=== PATIENT | male | born 1950 | race African-American/Black ===

== ENCOUNTER 2016-06-05 19:56 | Inpatient (IN) | payer MEDICAID ==
--- NOTE | 2016-06-05 19:57 | EDPHY ---
H & P HPI/ROS: CHIEF COMPLAINT: Found unresponsive. HISTORY OF PRESENT ILLNESS: This is a 63-year-old male presenting via EMS after being being found unresponsive on the floor at his home. He was last seen normal by friends 2 days ago. He did not respond to phone calls, so his friends went to his house this evening and found him on the floor in the kitchen unresponsive. On EMS arrival, he was breathing spontaneously, opened his eyes to voice and was very cold. EMS established a 16 gauge IV in the left AC and placed on a non-rebreather. EMS surveyed the home and reports finding blood in the toilet along with blood on tissues by his side. He was seen in the ED 1 year prior for a stroke alert but declined admission at that time. Further history unobtainable due to clinical condition. REVIEW OF SYSTEMS: Unobtainable. Past Medical/Surgical History: Hypertension, stroke. Social History: Lives alone. Physical Exam: General Appearance: Opens eyes to voice, mumbles when I ask his name Eyes: Pupils equal and round, 3mm ENT, Mouth: Mucous membranes dry, decreased gag reflex Neck: Normal inspection Respiratory: Lungs are clear to auscultation anteriorly, good air exchange Cardiovascular: Regular rate and rhythm Gastrointestinal: Abdomen is soft, nondistended Neurological: Opens eyes to voice, mumbles, not moving right lower extremity to painful stimuli, moving other extremities to painful stimuli Skin: Very cold, mottled extremities Extremities: pedal edema Constitutional: Initial Vital Signs Temperature (C) 26 C L 06/05/16 20:10 Heart Rate 45 L 06/05/16 20:10 Respiratory Rate 16 06/05/16 20:10 Blood Pressure 75/0 L 06/05/16 20:10 O2 Delivery Mode Non-Rebreather Mask O2 (L/minute) 15 Allergies/Adverse Reactions: No Known Allergies Allergy (Verified 06/05/16 23:10) Home Medications: Medication Instructions Recorded Antifungal For Face 06/10/14 Verapamil [Verapamil HCl] 06/10/14 Medical Decision Making - Diagnostics Imaging: Chest x-ray reviewed by me reveals cardiomegaly, no infiltrate. Procedures: Procedure: Rapid sequence intubation. Indication for the procedure was respiratory failure, AMS. The patient was preoxygenated with 100% oxygen by face mask. The patient was given the following IV medications: 20mg IV Etomidate. The patient was orally endotracheally intubated under direct visualization with a 7.5 ETT. In line stabilization was performed during the procedure. Tracheal intubation was confirmed with misting on the tube; breath sounds were auscultated equally bilaterally; appropriate color change with [place] [employer] CO2 detector. Chest X-ray shows ETT in good position. The procedure was performed by myself, Dr. Hernandez ED Course/Re-evaluation: 1955: I met EMS on arrival and obtained a report from the automation machine builder. His airway is intact with a decreased gag reflex, respiratory effort is adequate, hypotensive, very cold and mottled. Respiratory therapy at bedside. A rectal temperature was unobtainable; bear-hugger was placed. 2002: Blood bank at bedside for possible history of GI bleed. Manual systolic BP 75. 2004: Second IV established in right AC. EKG obtained. Law catheter with placed for accurate temperature. 2007: Portable chest x-ray obtained. It shows cardiomegaly with no infiltrate, interpreted by myself. 2010: Patient's temperature noted to be 26 degrees. Full trauma activation for hypothermia declared. 2014: Dr. Ornelas, surgery, at bedside for thermoguard placement. 2018: Rectal exam performed by ia shows brown stool. No evidence of serious GI bleed. 2030: pO2 returns critical at 20, likely inaccurate due to hypothermia. Setting up to intubate. 2036: 20mg IV Etomidate. Patient intubated (see procedure note for details). 2041: Thermogard placed by Dr. Ornelas. Thermoguard placement complicated by bilateral groin hematomas. Direct pressure placed by maintenance parts technician. Patient's platelet level critical at 14. Potassium critical at 6.6. Patient is in acute renal failure and has rhabdomyolysis. 2114: Repeat ISTAT after 2L IV saline shows potassium of 5.1. 2129: pt to CT scan. CT results per DR. Gonzalez: no ICH/CVA. Dr. Lawson consulted, will admit to ICU. Repeat CXR p intubation shows RML infiltrate, likely aspiration secondary to prolonged downtime and AMS. Zosyn IV given. Etiology of pt's critical illness unclear, possibly secondary to CVA/pneumonia. Core temp gradually increasing, still hypothermic. Pt remains intubated, BP 119/82, HR 65. Differential Diagnosis: Altered mental status including but not limited to hypoglycemia, CVA, ICH, infectious process, electrolyte abnormality, head injury and intoxicants. Critical Care Time: I spent a total of 60 minutes of critical care time including but not limited to obtaining history, performing a physical exam, ordering interventions and the bedside monitoring of those interventions, collecting and interpreting tests and discussion with consultants but not including time spent performing procedures. - Data Points Laboratory Results: Laboratory Results 06/05/16 20:00 06/05/16 20:00 06/05/16 20:00 Smear Review By Lavonne RAMIREZ MD Patient ABO/Rh A POSITIVE Medications Given: Discontinued Medications Sodium Chloride (Ns) 1,000 mls @ 0 mls/hr IV ONCE ONE PRN Reason: Wide Open Stop: 06/05/16 20:22 Last Admin: 06/05/16 23:03 Dose: 1,000 mls Sodium Chloride (Ns) 1,000 mls @ 0 mls/hr IV ONCE ONE PRN Reason: Wide Open Stop: 06/05/16 20:56 Last Admin: 06/05/16 23:03 Dose: 1,000 mls Piperacillin/Tazobactam/Dextrose (Zosyn 3.375 Gm (Premix)) 50 mls @ 100 mls/hr IV EDNOW ONE PRN Reason: Protocol Stop: 06/05/16 22:52 Last Admin: 06/06/16 00:30 Dose: 50 mls Phytonadione 10 mg/ Sodium (Chloride) 51 mls @ 102 mls/hr IV ONCE ONE Stop: 06/06/16 03:46 Last Admin: 06/06/16 03:37 Dose: 51 mls Albumin Human (Alburx 5) 500 mls @ 0 mls/hr IV ONCE ONE PRN Reason: As Directed Stop: 06/06/16 11:31 Last Admin: 06/06/16 11:32 Dose: 500 mls Insulin Human Regular (Humulin R) 10 unit IVP ONCE ONE Stop: 06/06/16 04:02 Last Admin: 06/06/16 04:27 Dose: 10 unit Sodium Bicarbonate (Sodium Bicarbonate) 50 meq IV ONCE ONE Stop: 06/06/16 05:31 Last Admin: 06/06/16 05:36 Dose: 50 meq Sodium Bicarbonate (Sodium Bicarbonate) 50 meq IVP ONCE ONE Stop: 06/06/16 07:06 Last Admin: 06/06/16 08:12 Dose: Not Given Sodium Bicarbonate (Sodium Bicarbonate) 50 meq IV ONCE ONE Stop: 06/06/16 08:31 Last Admin: 06/06/16 08:09 Dose: 50 meq Sodium Bicarbonate (Sodium Bicarbonate) 50 meq IV ONCE ONE Stop: 06/06/16 11:31 Last Admin: 06/06/16 11:32 Dose: 50 meq Departure - Departure Disposition: [facility] Inpatient Acute Clinical Impression: Hypothermia Qualifiers: Qualifier Code: (T68.XXXA) Hypothermia, initial encounter Rhabdomyolysis Qualifiers: Qualifier Code: (M62.82) Rhabdomyolysis Respiratory failure Qualifiers: Qualifier Code: (J96.01) Acute respiratory failure with hypoxia Condition: Critical Report Scribed for: Perla Hernandez Report Scribed by: Mark Augustin Date of Report: 06/05/16 Time of Report: 19:53 Physician Review and Approval Statement: 06/05/16 19:53 Portions of this note were transcribed by a medical records auditor. I personally performed a history, physical exam, medical decision making, and confirmed accuracy of information the transcribed note.
--- NOTE | 2016-06-05 20:07 | CPEKG ---
Heart Rate: 46 RR Interval: 1304 QRSD Interval: 176 QT Interval: 612 QTC Interval: 536 QRS [place]: -73 T Wave [place]: 99 EKG Severity - ABNORMAL ECG - EKG Impression: significant artifact obscures EKG reading EKG Impression: NONSPECIFIC IVCD WITH LAD EKG Impression: LEFT VENTRICULAR HYPERTROPHY Electronically Signed By: Perla Hernandez 05-Jun-2016 23:37:54
[2016-06-05] MEDS ORDERED: NS 1,000 ML IV ONE ×2 (20:21→20:55)
[2016-06-05 20:29] LABS: BASE EXCESS -11.9 mEq/L (-2.5-2.5); BICARBONATE 17 mEq/L (22-26); MEASURED OXYGEN SATURATION 53 % (92-95); PCO2 30 mmHg (34-38); TCO2 18 mEq/L (23-27)
--- NOTE | 2016-06-05 20:29 | DX ---
Portable Chest June 05, 2016 at 2012 hours Clinical Indications: 65-year-old male found unresponsive; comparison to the prior portable chest arley dy June 10, 2014. Findings: No focal pulmonary consolidations is seen. No pneumothorax is identified. The heart is enla rged. No significant pleural effusion is identified. Aortic calcification is noted. Pleural surfaces and bony thorax are negative for acute abnormality. Impression: Negative for acute posttraumatic abnormality. The heart is enlarged allowing for AP techn ique.
[2016-06-05 20:30] LABS: O2 CONCENTRATIION 100 % (0-100); P/F RATIO 20 RATIO
[2016-06-05 20:31] LABS: PO2 20 mmHg (65-75)
[2016-06-05 20:33] LABS: COLOR AMBER; LEUKOCYTE ESTERASE,URINE NEGATIVE (NEGATIVE); NITRITE,URINE NEGATIVE (NEGATIVE)
[2016-06-05] MEDS ORDERED: SUCCINYLCHOLINE CHLORIDE*ANESTHESIA ONLY*200 MG/10 ML SYR IVP ONE (20:34)
[2016-06-05] MEDS ORDERED: ETOMIDATE 40 MG/20 ML INJ ONE (20:34)
[2016-06-05 20:38] LABS: ABSOLUTE NRBC COUNT 0.13 10^3/uL (0-0.01); ADD DIFF? YES; ADD MORPH? YES; ADD SCAN? NO; ATYPICAL LYMPHOCYTE FLAG 0 (0-99); FRAGMENT RBC FLAG 0 (0-99); HEMATOCRIT 45.3 % (40.0-51.0); HEMOGLOBIN 15.5 g/dL (13.7-17.5); LEFT SHIFT FLG 40 (0-99); LIPEMIA HEMOLYSIS FLAG 90 (0-99); MEAN CELL HEMOGLOBIN 31.1 pg (27.9-34.1); MEAN CELL HEMOGLOBIN CONCENTR. 34.2 g/dL (32.4-36.7); PLATELET CLUMPS FLAG 30 (0-99); RED BLOOD CELL COUNT 4.98 10^6/uL (4.40-6.38); RED CELL DISTRIBUTION WIDTH 16.9 % (11.5-15.2)
[2016-06-05 20:43] LABS: NRBC-AUTO% 1.3 % (0.0-0.2)
[2016-06-05 20:44] LABS: ANION GAP 20 mEq/L (8-16); CARBON DIOXIDE 17 mEq/l (22-31); CHLORIDE 99 mEq/L (97-110); GLUCOSE 91 mg/dL (70-100); PLATELET COUNT 14 10^3/uL (150-400); SODIUM 136 mEq/L (134-144)
[2016-06-05 20:53] LABS: POTASSIUM 6.6 mEq/L (3.5-5.2)
[2016-06-05 20:56] LABS: TROPONIN I 0.295 ng/mL (0-0.034)
[2016-06-05 21:09] LABS: CK-MB INTERPRETATION NEGATIVE (NEGATIVE)
[2016-06-05 21:14] LABS: CREATININE 2.8 mg/dL (0.7-1.3); GLOMERULAR FILTRATION RATE 23
[2016-06-05 21:39] LABS: PLATELET ESTIMATE DECREASED (ADEQ)
[2016-06-05 21:40] LABS: GIANT PLATELETS PRESENT
[2016-06-05 21:45] LABS: ECHINOCYTES 3+; ELLIPTOCYTES 1+; KERATOCYTES 1+; MACROCYTES 2+; POLYCHROMASIA 1+; SCHISTOCYTES 1+
--- NOTE | 2016-06-05 22:08 | CT ---
CT Brain (Without Contrast) History: Patient found down; altered mental status. Comparison to the prior CT study June 10 5. Technique: Axial computed tomographic images of the brain are obtained from the base to the vertex w ithout contrast. Images are obtained at 5 mm thickness and reformatted at 1.5 mm. Sagittal and saleh l reformations are performed and the study is reviewed at multiple window/level settings. Dose reduct ion techniques were utilized. Findings: Ventricles, cisterns, and sulci are widened consistent with atrophy. There is no hydroceph alus, midline shift/herniation, or epidural/subdural hematoma. No intraparenchymal hemorrhage or mass effect is identified. Low-attenuation changes are seen in periventricular and subcortical white ramírez er bilaterally. There is more focal low-attenuation adjacent to the anterior horn of the right latera l ventricle which probably represents a region of remote cortical infarct not significantly changed t 2014 study. No acute cortical ischemia is identified. Cerebrovascular atherosclerosis is identifie d. Bone windows demonstrate no displaced fractures. Paranasal sinuses and mastoid air cells are clear . Impression: 1. Elderly brain with atrophy and probable white matter small vessel disease. 2. Remote cortical infarct adjacent to the frontal horn of the right lateral ventricle. 3. Negative for hemorrhage or other posttraumatic abnormality. CT Cervical Spine Without Contrast History: Trauma. Altered mental status in a 65-year-old male. Technique: Multislice helical CT through the cervical spine without contrast from the skull base to T 1. Soft tissue and bone evaluation is performed. Sagittal and coronal reconstructions are obtained an d reviewed. Dose reduction techniques were utilized. Findings: There is straightening of the normal cervical curvature, otherwise, the bone alignment is a natomic. No fracture or dislocation is identified. The relationship between skull base and C1 is norm al. The C1-C2 articulation is normal. Incidentally, there is nonfusion of the anterior arch of C1. Th e odontoid process is normal. The cervical thoracic junction is normal. Soft tissue window evaluation does not show evidence of epidural or prevertebral hematoma. Prominent degenerative changes are noted. There is interbody fusion at C3-C4 and at C5-C6. There is m arked disk space loss with associated endplate degenerative changes noted at C6-C7. There is probable canal stenosis as well is bilateral neural foraminal impingement that C6-C7 with less severe degener ative changes seen at other levels. Impression: 1. Negative for fracture. 2. Prominent multilevel degenerative changes are seen as detailed above most severe at C6-C7. A preliminary report was called to Dr. Perla Hernandez 2200 hours in the Emergency Department.
--- NOTE | 2016-06-05 22:22 | GOP ---
[f rep st] OPERATIVE REPORT DATE OF OPERATION: SURGEON: Amalia Ornelas MD PREOPERATIVE DIAGNOSIS: Hypothermia to 26 degrees Celsius. POSTOPERATIVE DIAGNOSIS: Hypothermia to 26 degrees Celsius. PROCEDURE PERFORMED: Thermogard placement in the right femoral vein. FINDINGS: Catheter flushed and rod. SPECIMENS: None. ESTIMATED BLOOD LOSS: 50 mL. INDICATIONS: The patient is a man who was found down unresponsive in his apartment for possibly up t o 2 days, as that is when his friends and family last saw him. He was noted to be hypothermic to 26 degrees centigrade upon arrival in the emergency department. DESCRIPTION OF PROCEDURE: A right femoral Thermogard catheter was placed under direct visualization of the SonoSite ultrasound using Seldinger technique. /[id number]/MODL
--- NOTE | 2016-06-05 22:22 | CPEKG ---
Heart Rate: 59 RR Interval: 1017 P-R Interval: 197 QRSD Interval: 118 QT Interval: 520 QTC Interval: 516 P [place]: 0 QRS [place]: -59 T Wave [place]: 89 EKG Severity - ABNORMAL ECG - EKG Impression: SINUS RHYTHM EKG Impression: LAD, CONSIDER LEFT ANTERIOR FASCICULAR BLOCK EKG Impression: PROBABLE ANTEROSEPTAL INFARCT, AGE INDETERM Electronically Signed By: Perla Hernandez 05-Jun-2016 23:35:50
[2016-06-05] MEDS ORDERED: PIPERACILLIN/TAZO 3.375 GM/DEX 50 ML IV ONE (22:23)
[2016-06-05 22:59] LABS: RANDOM URINE POTASSIUM 47.7 mEq/L (0.5-35.0)
[2016-06-05 23:07] LABS: PHENCYCLIDINE URINE BCH < 6 ng/ml (NEGATIVE); TETRAHYDROCANNABINOL URINE < 5 ng/mL (NEGATIVE)
[2016-06-05 23:10] LABS: PHENCYCLIDINE URINE BCH NEGATIVE (NEGATIVE); TETRAHYDROCANNABINOL URINE NEGATIVE (NEGATIVE)
[2016-06-05 23:48] LABS: PCO2 VENOUS 28 mmHg (40-44); PH VENOUS BLOOD 7.33 (7.31-7.42); PO2 VENOUS 25 mmHg (35-40); TCO2 VENOUS 17 mEq/L (23-27); VEN MEASURED OXYGEN SATURATION 56 % (65-75)
[2016-06-05 23:49] LABS: PATIENT RATE 34; PRESSURE SUPPORT 7; SIMV YES
[2016-06-05 23:50] LABS: END TIDAL CO2 13; O2 CONCENTRATIION 100 % (0-100)
[2016-06-05] MEDS: PANTOPRAZOLE SODIUM 40 MG in NS 100 ML IV SCH (23:54)
[2016-06-05] MEDS: NS 1,000 ML IV SCH (23:55)
[2016-06-06] MEDS ORDERED: fentaNYL 100 MCG/2 ML INJ IVP PRN (01:20)
[2016-06-06] MEDS ORDERED: fentanYL/NACL/100 ML BAG IV ONE (01:20)
[2016-06-06] MEDS: fentaNYL/NACL 100 ML IV SCH ×2 (01:30→21:00)
[2016-06-06] MEDS: DEXMEDETOMIDINE HCL 400 MCG in NS 100 ML IV SCH ×3 (02:30→20:30)
[2016-06-06 02:39] LABS: BASE EXCESS -13.2 mEq/L (-2.5-2.5); BICARBONATE 13 mEq/L (22-26); MEASURED OXYGEN SATURATION 99 % (92-95); TCO2 14 mEq/L (23-27)
[2016-06-06 02:41] LABS: PCO2 24 mmHg (34-38); PO2 289 mmHg (65-75)
[2016-06-06 02:43] LABS: END TIDAL CO2 15; O2 CONCENTRATIION 100 % (0-100); P/F RATIO 289 RATIO; PATIENT RATE 38; PIP 28.6; PRESSURE SUPPORT 7; SIMV YES
[2016-06-06 02:46] LABS: % IMMATURE GRANULYOCYTES 1.4 % (0.0-1.1); ABSOLUTE IMMATURE GRANULOCYTES 0.15 10^3/uL (0.00-0.10); ABSOLUTE NRBC COUNT 0.13 10^3/uL (0-0.01); ADD DIFF? NO; ADD SCAN? NO; ATYPICAL LYMPHOCYTE FLAG 0 (0-99); FRAGMENT RBC FLAG 0 (0-99); HEMATOCRIT 28.3 % (40.0-51.0); HEMOGLOBIN 9.8 g/dL (13.7-17.5); LEFT SHIFT FLG 30 (0-99); LIPEMIA HEMOLYSIS FLAG 90 (0-99); MEAN CELL HEMOGLOBIN 31.9 pg (27.9-34.1); MEAN CELL HEMOGLOBIN CONCENTR. 34.6 g/dL (32.4-36.7); MEAN CELL VOLUME 92.2 fL (81.5-99.8); PLATELET CLUMPS FLAG 10 (0-99); PLATELET COUNT 71 10^3/uL (150-400); RED BLOOD CELL COUNT 3.07 10^6/uL (4.40-6.38); RED CELL DISTRIBUTION WIDTH 16.1 % (11.5-15.2)
[2016-06-06 02:50] LABS: NRBC-AUTO% 1.2 % (0.0-0.2)
[2016-06-06 02:51] LABS: ADD MORPH? NO
[2016-06-06 02:52] LABS: ALANINE AMINOTRANSFERASE 559 IU/L (21-72); ALBUMIN 1.8 g/dL (3.5-5.0); ALKALINE PHOSPHATASE 53 IU/L (38-126); ANION GAP 14 mEq/L (8-16); BILIRUBIN,TOTAL 5.6 mg/dL (0.1-1.4); CALCIUM 7.1 mg/dL (8.5-10.4); CARBON DIOXIDE 15 mEq/l (22-31); CHLORIDE 109 mEq/L (97-110); GLUCOSE 73 mg/dL (70-100); MAGNESIUM 2.7 mg/dL (1.6-2.3); POTASSIUM 6.2 mEq/L (3.5-5.2); SODIUM 138 mEq/L (134-144); TOTAL PROTEIN 4.3 g/dL (6.3-8.2)
[2016-06-06 02:55] LABS: PROTIME(PATIENT) 52.8 SEC (12.0-15.0)
[2016-06-06 03:04] LABS: TROPONIN I 0.263 ng/mL (0-0.034)
[2016-06-06] MEDS ORDERED: PHYTONADIONE 10 MG in NS 50 ML IV ONE (03:17)
[2016-06-06] MEDS: NS 1,000 ML IV SCH ×3 (03:35→18:12)
[2016-06-06 03:40] LABS: ASPARTATE AMINOTRANSFERASE 1724 IU/L (17-59); CREATININE 2.8 mg/dL (0.7-1.3); GLOMERULAR FILTRATION RATE 23
[2016-06-06 03:49] LABS: FIBRINOGEN < 60 mg/dL (214-456)
[2016-06-06 03:50] LABS: BILIRUBIN-UNCONJUGATED 2.6 mg/dL (0.0-1.1)
[2016-06-06 03:52] LABS: INR 5.71 (0.83-1.16)
[2016-06-06 03:54] LABS: CK-MB INTERPRETATION NEGATIVE (NEGATIVE)
[2016-06-06] MEDS ORDERED: D50W 25 GM/50 ML SYR IVP PRN (04:01)
[2016-06-06] MEDS ORDERED: INSULIN REGULAR HUMAN 100 UNIT/ML IVP ONE (04:01)
--- NOTE | 2016-06-06 04:07 | PDGENHP ---
History and Physical - Chief Complaint unresponsive - History of Present Illness Patient is a 65-year-old male with a known medical history who was brought to the ED after being found unresponsive in his home. Per ED report, patient's friends had last spoke to him about 2 days ago, were unable to get through to him via telephone from 06/04-06/05, so on 06/05 decided to go to his apartment to check on him. On their arrival they found the patient unresponsive on the floor of his apartment, so they called EMS. On EMS arrival patient was found to be hypothermic and unresponsive, but with a pulse. There was dry blood present around the patient's mouth and around the patient, but no active signs of bleeding. On arrival to the ED, patient was hypothermic to 26 C, bradycardic, hypotensive and hypoxic. He was immediately intubated and given aggressive IV fluid hydration. Labs revealed acute renal failure, hyperkalemia, leukocytosis, marked thrombocytopenia and elevated troponin and CK. Chest x-ray revealed possible right middle/lower lobe infiltrate. CT head did not reveal any acute changes, revealed evidence of an old infarct. Thermo-guard catheter was placed by surgery and he was initiated on a external and internal rewarming. Was then admitted to the hospitalist service for further management. On my evaluation patient was unresponsive without any sedation, and did not withdraw painful stimuli. Thermo-guard insertion was complicated by a left thigh hematoma, which was wrapped with a pressure bandage. Review of [facility] revealed 1 ER visit in 2014 for stroke alert, at that time patient was ruled out for tPA administration and then side out AMA from the ER. Other than this no other medical history can be gleaned from [facility]. It is unclear whether patient has family, and friends who called EMS were not present in the ER. The police department has been contacted to aid in this. History Information - Allergies/Home Medication List Allergies/Adverse Reactions: No Known Allergies Allergy (Verified 06/05/16 23:10) Home Medications: Antifungal For Face 06/10/14 [Last Taken Unknown] Verapamil [Verapamil HCl] 06/10/14 [Last Taken Unknown] I have personally reviewed and updated: family history, medical history, social history, surgical history - Past Medical History Additional medical history: Unable to obtain - Surgical History Additional surgical history: Unable to obtain - Family History Additional family history: Unable to obtain - Social History Smoking Status: Unknown if ever smoked Additional social history: Patient's history is not unable to be obtained due to unresponsiveness. Urine tox screen is positive for benzos and cocaine. Review of Systems Review of Systems: Unable to obtain review of systems as patient is unresponsive Physical Exam Temp Pulse Resp BP Pulse Ox 31.3 C L 62 33 H 87/64 L 06/06/16 03:00 06/06/16 04:00 06/06/16 04:00 06/06/16 04:00 O2 (L/minute) 100 FIO2 (%) 100 Constitutional: other (Thin male) Eyes: other (Pupils equal, sluggishly reactive to light, anicteric) Ears, Nose, Mouth, Throat: other (Dried blood present on patient's lips and oral cavity, dry mucous membranes) Cardiovascular: bradycardia (Regular, no murmurs) Peripheral Pulses: 1+: dorsalis-pedis (R), dorsalis-pedis (L) Respiratory: other (Intubated, slightly tachypneic over event, no obvious wheezing, rhonchi or crackles) Gastrointestinal: normoactive bowel sounds, soft, non-tender abdomen, No distension Genitourinary: no bladder fullness, no bladder tenderness Skin: other (Cyanosis of bilateral feet and hands, dried blood scattered over extremities; no obvious open would. L thigh hematoma at site of attempted thermoguard placement) Musculoskeletal: other (No areas of tense muslces to indicate compartment syndrom) Neurologic: other (coma unresponsive and no movementto painful stimuli) Lab Data & Imaging Review 06/06/16 06:00 06/06/16 06:00 WBC 10.83 10^3/uL (3.80-9.50) H 06/06/16 02:20 RBC 3.07 10^6/uL (4.40-6.38) L 06/06/16 02:20 Hgb 9.8 g/dL (13.7-17.5) L 06/06/16 02:20 POC Hgb 11.6 gm/dL (14.5-17.3) L 06/05/16 21:05 Hct 28.3 % (40.0-51.0) L D 06/06/16 02:20 POC Hct 34 % (42.8-50.6) L 06/05/16 21:05 MCV 92.2 fL (81.5-99.8) 06/06/16 02:20 MCH 31.9 pg (27.9-34.1) 06/06/16 02:20 MCHC 34.6 g/dL (32.4-36.7) 06/06/16 02:20 RDW 16.1 % (11.5-15.2) H 06/06/16 02:20 Plt Count 71 10^3/uL (150-400) L D 06/06/16 02:20 MPV 11.0 fL (8.7-11.7) 06/06/16 02:20 Neut % (Auto) 92.0 % (39.3-74.2) H 06/06/16 02:20 Lymph % (Auto) 2.2 % (15.0-45.0) L 06/06/16 02:20 [place] % (Auto) 4.3 % (4.5-13.0) L 06/06/16 02:20 Eos % (Auto) 0.0 % (0.6-7.6) L 06/06/16 02:20 Baso % (Auto) 0.1 % (0.3-1.7) L 06/06/16 02:20 Nucleat RBC Rel Count 1.2 % (0.0-0.2) H 06/06/16 02:20 Absolute Neuts (auto) 9.96 10^3/uL (1.70-6.50) H 06/06/16 02:20 Absolute Lymphs (auto) 0.24 10^3/uL (1.00-3.00) L 06/06/16 02:20 Absolute Monos (auto) 0.47 10^3/uL (0.30-0.80) 06/06/16 02:20 Absolute Eos (auto) 0.00 10^3/uL (0.03-0.40) L 06/06/16 02:20 Absolute Basos (auto) 0.01 10^3/uL (0.02-0.10) L 06/06/16 02:20 Absolute Nucleated RBC 0.13 10^3/uL (0-0.01) H 06/06/16 02:20 Immature Gran % 1.4 % (0.0-1.1) H 06/06/16 02:20 Seg Neutrophils % 71 % 06/05/16 20:00 Band Neutrophils % 17 % 06/05/16 20:00 Lymphocytes % 6 % 06/05/16 20:00 Monocytes % 5 % 06/05/16 20:00 Metamyelocytes % 1 % 06/05/16 20:00 Immature Gran # 0.15 10^3/uL (0.00-0.10) H 06/06/16 02:20 Absolute Seg Neuts 6.95 10^/uL (1.70-6.50) H 06/05/16 20:00 Absolute Band Neuts 1.66 10^3/uL (0.00-0.70) H 06/05/16 20:00 Absolute Lymphocytes 0.59 10^3/uL (1.00-3.00) L 06/05/16 20:00 Absolute Monocytes 0.49 10^3/uL (0.30-0.80) 06/05/16 20:00 Absolute Metamyelocyte 0.10 10^3/mL (0.00-0.00) H 06/05/16 20:00 Nucleated RBCs 2 /100 WBC (0-0) H 06/05/16 20:00 Platelet Estimate DECREASED (ADEQ) L 06/05/16 20:00 Giant Platelets PRESENT H 06/05/16 20:00 Polychromasia 1+ H 06/05/16 20:00 Tear Drop Cells 3+ H 06/05/16 20:00 Oval Macrocytes 2+ H 06/05/16 20:00 Echinocytes 3+ H 06/05/16 20:00 Elliptocytes 1+ H 06/05/16 20:00 Keratocytes 1+ H 06/05/16 20:00 Schistocytes 1+ H 06/05/16 20:00 Smear Review By Cancelled 06/06/16 02:20 PT 52.8 SEC (12.0-15.0) H 06/06/16 02:20 INR 5.71 (0.83-1.16) H* 06/06/16 02:20 APTT 78.0 SEC (23.0-38.0) H 06/06/16 02:20 Fibrinogen < 60 mg/dL (214-456) L* 06/06/16 02:20 D-Dimer > 20.00 ug/mLFEU (0.00-0.50) H 06/06/16 02:20 Puncture Site ARTERIAL LINE 06/06/16 02:20 Patient Temperature 30.9 DEGREES 06/06/16 02:20 pCO2 24 mmHg (34-38) L 06/06/16 02:20 pO2 289 mmHg (65-75) H D 06/06/16 02:20 Total CO2 14 mEq/L (23-27) L 06/06/16 02:20 ABG pH 7.32 (7.35-7.45) L 06/06/16 02:20 ABG PO2/FiO2 Ratio 289 RATIO 06/06/16 02:20 ABG O2 Saturation 99 % (92-95) H D 06/06/16 02:20 ABG Base Excess -13.2 mEq/L (-2.5-2.5) L 06/06/16 02:20 VBG pH 7.33 (7.31-7.42) 06/05/16 23:40 VBG HCO3 16 mEQ/L (22-26) L 06/05/16 23:40 VBG Total CO2 17 mEq/L (23-27) L 06/05/16 23:40 VBG O2 Saturation 56 % (65-75) L 06/05/16 23:40 VBG Base Excess -10.6 mEq/L (-2.5-2.5) L 06/05/16 23:40 VBG Lactic Acid 6.8 mmol/L (0.7-2.1) H 06/06/16 02:15 Mixed VBG pCO2 28 mmHg (40-44) L 06/05/16 23:40 Mixed VBG pO2 25 mmHg (35-40) L 06/05/16 23:40 Total O2 Concentration 100.0 LITERS 06/05/16 23:40 O2 Concentration % 100 % (0-100) 06/06/16 02:20 Actual Respiration Rate 38 06/06/16 02:20 Set Respiration Rate 22 06/06/16 02:20 SIMV YES 06/06/16 02:20 Tidal Volume 550 06/06/16 02:20 End Tidal CO2 15 06/06/16 02:20 PEEP 5 06/06/16 02:20 Peak Inspir Pressure 28.6 06/06/16 02:20 Pressure Support 7 06/06/16 02:20 POC Sodium 137 mEq/L (134-144) 06/05/16 21:05 Sodium 138 mEq/L (134-144) 06/06/16 02:20 POC Potassium 5.1 mEq/L (3.3-5.0) H 06/05/16 21:05 Potassium 6.2 mEq/L (3.5-5.2) H 06/06/16 02:20 POC Chloride 110 mEq/L (96-108) H 06/05/16 21:05 Chloride 109 mEq/L (97-110) D 06/06/16 02:20 Carbon Dioxide 15 mEq/l (22-31) L 06/06/16 02:20 Bicarbonate 13 mEq/L (22-26) L 06/06/16 02:20 Anion Gap 14 mEq/L (8-16) 06/06/16 02:20 POC BUN 98 mg/dL (7-23) H 06/05/16 21:05 BUN 111 mg/dL (7-23) H* 06/06/16 02:20 Creatinine 2.8 mg/dL (0.7-1.3) H 06/06/16 02:20 POC Creatinine 3.3 mg/dL (0.8-1.5) H 06/05/16 21:05 Estimated GFR 23 06/06/16 02:20 Glucose 73 mg/dL (70-100) 06/06/16 02:20 POC Glucose 89 mg/dL (70-100) 06/06/16 00:22 Calcium 7.1 mg/dL (8.5-10.4) L D 06/06/16 02:20 Phosphorus 9.1 mg/dL (2.5-4.5) H 06/06/16 02:20 Magnesium 2.7 mg/dL (1.6-2.3) H 06/06/16 02:20 Total Bilirubin 5.6 mg/dL (0.1-1.4) H 06/06/16 02:20 Conjugated Bilirubin 3.0 mg/dL (0.0-0.5) H 06/06/16 02:20 Unconjugated Bilirubin 2.6 mg/dL (0.0-1.1) H 06/06/16 02:20 AST 1724 IU/L (17-59) H 06/06/16 02:20 ALT 559 IU/L (21-72) H 06/06/16 02:20 Alkaline Phosphatase 53 IU/L (38-126) 06/06/16 02:20 Creatine Kinase 02347 IU/L (0-224) H 06/05/16 20:00 CK-MB (CK-2) Fraction 231.00 ng/mL (0-3.19) H 06/06/16 02:20 CK-MB (CK-2) % 0.0 % (0.0-4.0) 06/06/16 02:20 Creatine Kinase Interp NEGATIVE (NEGATIVE) 06/06/16 02:20 Troponin I 0.263 ng/mL (0-0.034) H 06/06/16 02:20 Total Protein 4.3 g/dL (6.3-8.2) L 06/06/16 02:20 Albumin 1.8 g/dL (3.5-5.0) L 06/06/16 02:20 TSH 2.780 uIU/mL (0.465-4.680) 06/05/16 20:00 Urine Color RUSSELL 06/05/16 20:15 Urine Appearance HAZY 06/05/16 20:15 Urine pH 5.0 (5.0-7.5) 06/05/16 20:15 Ur Specific [place] 1.014 (1.002-1.030) 06/05/16 20:15 Urine Protein 1+ (NEGATIVE) H 06/05/16 20:15 Urine Ketones NEGATIVE (NEGATIVE) 06/05/16 20:15 Urine Blood 3+ (NEGATIVE) H 06/05/16 20:15 Urine Nitrate NEGATIVE (NEGATIVE) 06/05/16 20:15 Urine Bilirubin NEGATIVE (NEGATIVE) 06/05/16 20:15 Urine Urobilinogen 4.0 EU (0.2-1.0) H 06/05/16 20:15 Ur Leukocyte Esterase NEGATIVE (NEGATIVE) 06/05/16 20:15 Urine RBC 1-3 /hpf (0-3) 06/05/16 20:15 Urine WBC 1-3 /hpf (0-3) 06/05/16 20:15 Ur Epithelial Cells NONE SEEN /lpf (NONE-1+) 06/05/16 20:15 Hyaline Casts 1-5 /lpf (0-1) 06/05/16 20:15 Urine Sperm PRESENT /hpf (NONE SEEN) 06/05/16 20:15 Urine Osmolality 482 mosmo/kg (300-900) 06/05/16 20:15 Ur Random Creatinine 76.0 mg/dL 06/05/16 20:15 Ur Random Sodium < 5.0 mEq/L (30-90) L 06/05/16 20:15 Ur Random Potassium 47.7 mEq/L (0.5-35.0) H 06/05/16 20:15 Ur Random Urea Nitrogn 774.0 mg/dL 06/05/16 20:15 Urine Glucose NEGATIVE (NEGATIVE) 06/05/16 20:15 Urine Opiates Screen NEGATIVE ng/mL (NEGATIVE) 06/05/16 20:15 Urine Barbiturates NEGATIVE ng/mL (NEGATIVE) 06/05/16 20:15 Ur Phencyclidine Scrn NEGATIVE ng/mL (NEGATIVE) 06/05/16 20:15 Ur Amphetamines Screen NEGATIVE ng/mL (NEGATIVE) 06/05/16 20:15 U Benzodiazepines Scrn 302 ng/mL (NEGATIVE) 06/05/16 20:15 Urine Cocaine Screen 5467 ng/mL (NEGATIVE) 06/05/16 20:15 U Marijuana (THC) Screen NEGATIVE ng/mL (NEGATIVE) 06/05/16 20:15 Patient ABO/Rh A POSITIVE 06/05/16 20:00 Visualized and Interpreted Chest x-ray results: Yes Chest X-Ray results: other (Cardiomegaly, possible right middle lobe infiltrate) Visualized and Interpreted imaging results: Yes Interpretation: CT head: Chronic atrophy, old infarct in right frontal,, no obvious hemorrhage. CT C-spine: No acute fracture Visualized and Interpreted EKG results: Yes EKG additional interpertation: First: Sinus bradycardia with wide QRS. Repeat : Sinus bradycardia, narrow QRS, T-wave inversion in V5 through V6 QTC prolonged Assessment & Plan Assessment: Patient is a 65-year-old male with unknown medical history who presents after being found unresponsive in his home. On arrival patient was hypothermic, hypotensive in acute renal failure, acute rhabdomyolysis and acute respiratory failure, as well as hemodynamically unstable. Plan: # Neuro: acute encephalopathy, coma Likely related to hypothermia and metabolic encephalopathy, given renal failure. CT head does not show obvious acute cva/hemorrhage. Will rewarm and reassess mental status. Will give sedation for mechanical ventilation. # hypothermia Etiology unclear at this time, it is likely patient became unresponsive first and then hypothermia developed due to exposure. Drug screen positive for cocaine and benzos. Severe sepsis could also be contributing. Internal and external rewarming initiated in ED. Will monitor mental status, electrolytes, hemodynamics and temperature closely over course of rewarming. # CV: shock Patient hemodynamically unstable despite aggressive IV fluid resuscitation. Given 3L NS bolus in ED and an additional 3L in ICU. Etiology likely related to re-warming fluid shifts, as well as possible septic shock. Lactic acid is 6.2 after fluid resuscitation. Will start norepinephrine with goal to keep MAP > 65. Portable CXR shows cardiomegaly, will check official TTE in AM. # Resp: acute hypoxic respiratory failure, likely aspiration Patient intubated in ED for hypoxic respiratory failure and also inability to protect airway. Saturations are difficult to obtain due to hypothermia, but ABG reveals adequate oxygenation. Patient tachypneic, likely in compensation for the metabolic acidosis. Will cover with Zosyn for pneumonia, presumed aspiration. # Renal: acute renal failure, acute rhabdomyolysis, AG metabolic acidosis ARF likely related to ATN due to acute rhabdo, with prerenal azotemia also contributing (Ur Na < 5). Given aggressive IVF resuscitation, but with little improvement in BUN/CR. Renal failure also complicated by hyperkalemia, hyperphosphatemia, hyperMg, hypocalcemia. AG metabolic acidosis likely related to lactic acidosis, uremia. Since arrival to the ICU, urine output has dropped off significantly, < 50 cc over past 5 hours. Will obtain renal US, renal consult and monitor BMP, electrolytes q6h. Need for HD vs CRRT likely, pending full renal consult. IR consulted for Vascath placement. # Heme: DIC, thrombocytopenia Etiology of thrombocytopenia unclear, but coagulopathy related to acute DIC, with underlying liver failure also possibly contributing. DIC likely precipitated by acute renal failure/uremia. Have transfused platelets, FFP and gave Vit K. Repeat all labs. Platelets responded appropriately to transfusion. H /H also downtrending, likely related to dilution as > 6L of NS was given. Will also monitor for signs of bleeding, transfuse if Hb<7. # GI: ? GI bleeding Patient reportedly found with dried blood around him at home. Now H/H initially dropped but has stabilized, no evidence of GI bleeding at this time. However, given persistently elevated lactic acid, must also consider bowel ischemia. Abdomen is soft on exam, with bowel sounds present. Unable to assess with CT given renal failure, however, if patient is initiated on hemodialysis, can consider obtaining CT abd with IV contrast to rule this out. For now will cont to trend H/H, maintain hemodynamic stability and start PPI IV BID. # dispo: admit to ICU for likely > 2 MN stay Total critical care time spent > 60 minutes in direct patient care, reviewing all electronic medical records. # full code --> no known family per EMS, police report filed in attempt to locate family (PD) and they should be informed of any developments or changes in status.
[2016-06-06 04:19] LABS: CORTISOL-AM > 123.2 ug/dL (4.5-22.7); PLATELET COUNT 71 10^3/uL (150-400)
[2016-06-06] MEDS: NOREPINEPHRINE BITARTRATE 4 MG in D5W 500 ML IV SCH ×5 (04:27→22:00)
[2016-06-06] MEDS ORDERED: SODIUM BICARBONATE 50 MEQ/50 ML SYR IVP ONE ×2 (05:06→07:05)
[2016-06-06] MEDS ORDERED: NA BICARBONATE 50 MEQ/50 ML VIAL IV ONE ×3 (05:30→11:30)
--- NOTE | 2016-06-06 05:48 | CPEKG ---
Heart Rate: 70 RR Interval: 857 QRSD Interval: 116 QT Interval: 488 QTC Interval: 527 QRS [place]: -45 T Wave [place]: 95 EKG Severity - ABNORMAL ECG - EKG Impression: NSR EKG Impression: LAD, CONSIDER LEFT ANTERIOR FASCICULAR BLOCK EKG Impression: CONSIDER ANTEROSEPTAL INFARCT Electronically Signed By: Max Bush 06-Jun-2016 07:42:21
[2016-06-06 06:21] LABS: BASE EXCESS -12.3 mEq/L (-2.5-2.5); BICARBONATE 14 mEq/L (22-26); MEASURED OXYGEN SATURATION 81 % (92-95); PCO2 28 mmHg (34-38); PO2 43 mmHg (65-75); TCO2 15 mEq/L (23-27)
[2016-06-06 06:23] LABS: PATIENT RATE 24; SIMV YES
[2016-06-06 06:24] LABS: END TIDAL CO2 15; PRESSURE SUPPORT 7
[2016-06-06 06:29] LABS: % IMMATURE GRANULYOCYTES 1.2 % (0.0-1.1); ABSOLUTE IMMATURE GRANULOCYTES 0.08 10^3/uL (0.00-0.10); ABSOLUTE NRBC COUNT 0.08 10^3/uL (0-0.01); ADD DIFF? NO; ADD MORPH? YES; ADD SCAN? NO; ATYPICAL LYMPHOCYTE FLAG 0 (0-99); FRAGMENT RBC FLAG 0 (0-99); HEMOGLOBIN 9.3 g/dL (13.7-17.5); LEFT SHIFT FLG 60 (0-99); LIPEMIA HEMOLYSIS FLAG 80 (0-99); MEAN CELL HEMOGLOBIN 31.5 pg (27.9-34.1); MEAN CELL HEMOGLOBIN CONCENTR. 33.2 g/dL (32.4-36.7); MEAN CELL VOLUME 94.9 fL (81.5-99.8); MEAN PLATELET VOLUME 10.6 fL (8.7-11.7); PLATELET CLUMPS FLAG 10 (0-99); PLATELET COUNT 51 10^3/uL (150-400); RED BLOOD CELL COUNT 2.95 10^6/uL (4.40-6.38); RED CELL DISTRIBUTION WIDTH 16.4 % (11.5-15.2)
[2016-06-06 06:31] LABS: NRBC-AUTO% 1.2 % (0.0-0.2)
--- NOTE | 2016-06-06 06:32 | DX ---
Portable Chest June 05, 2016 2201 hours Clinical Indications: Follow up intubation; comparison to the prior study performed at 2012 hours ear lier today. Findings: There has been interval placement of an endotracheal tube with the tip projecting 5 cm abov e the crys. Patient is rotated slightly. The heart is enlarged. Basilar opacities bilaterally are s een more pronounced on the left side. Air bronchogram is suspected involving the left lower lung whic h may reflect a left lower lobe pneumonia or possibly aspiration. The heart is enlarged. There is mil d elevation of the left hemidiaphragm. Impression: 1. Tip of the endotracheal tube is positioned 5 cm above the crys. 2. Query left lower lobe pneumonia or possibly aspiration.
[2016-06-06 06:36] LABS: INR 4.64 (0.83-1.16); PROTIME(PATIENT) 44.7 SEC (12.0-15.0)
[2016-06-06 06:37] LABS: APTT 64.8 SEC (23.0-38.0)
[2016-06-06 06:41] LABS: ANION GAP 15 mEq/L (8-16); CARBON DIOXIDE 16 mEq/l (22-31); CHLORIDE 107 mEq/L (97-110); GLUCOSE 122 mg/dL (70-100); POTASSIUM 5.9 mEq/L (3.5-5.2); SODIUM 138 mEq/L (134-144)
[2016-06-06 06:56] LABS: CREATININE 2.9 mg/dL (0.7-1.3); GLOMERULAR FILTRATION RATE 22
[2016-06-06 06:58] LABS: CK-MB INTERPRETATION NEGATIVE (NEGATIVE); FIBRINOGEN < 60 mg/dL (214-456)
[2016-06-06 07:11] LABS: PLATELET COUNT 51 10^3/uL (150-400)
[2016-06-06] MEDS ORDERED: NA BICARBONATE 50 MEQ/50 ML VIAL ONE ×2 (08:05→10:39)
--- NOTE | 2016-06-06 08:20 | DX ---
Portable Chest, 6:10 a.m. Clinical Indications: Altered mental status, intubated patient Comparison: June 05, 2016 and June 10, 2014 Findings: There is progressive volume loss in the left hemithorax with shift of the heart and medias tinum , including the trachea, into the left hemithorax. Right lower lobe infiltrate remains. There i s no pneumothorax or pleural effusion. ET tube remains in place. EKG leads overlie the chest. Impression: Progressive left lung atelectasis. Results called to Zabrina, the patient's ICU nurse at 8:15 am.
--- NOTE | 2016-06-06 08:32 | US ---
Renal Sonogram Clinical Indications: Acute renal failure. Findings: The right kidney measures 4.1 x 5.5 x 9.1 cm with the cortex measuring 0.8 cm. No masses are identified, and there is no hydronephrosis. There are no pararenal lesions. The left kidney mar[place] sures 5.2 x 5.9 x 10.4 cm with the cortex measuring 1.5 cm. No masses are identified, and there is n o hydronephrosis. There are no pararenal lesions. The kidneys bilaterally show mild increased cortic al echotexture and there is very mild pyelocaliectasis versus very mild hydronephrosis of both kidney s. A Law is noted in the bladder. There is trace perinephric fluid and a small right pleural effusion. Impression: 1. Very mildly increased cortical echotexture suggests underlying medical renal parenchymal disease. 2. Mild pyelocaliectasis versus very mild hydronephrosis bilaterally. I favor this is not true hydron ephrosis. 3. Law noted in the bladder. 4. Small right pleural effusion and trace perinephric fluid suggests mild fluid overload.
[2016-06-06 08:34] LABS: ETHANOL SERUM < 10 mg/dL (0-10); SALICYLATE < 1.0 mg/dL (2.0-20.0)
[2016-06-06] MEDS ORDERED: LIDOCAINE 1% 30 ML SDV ONE (08:42)
[2016-06-06] MEDS ORDERED: LIDOCAINE 2% JELLY 5 ML TUBE ONE (08:42)
--- NOTE | 2016-06-06 08:43 | CPEKG ---
Heart Rate: 73 RR Interval: 822 P-R Interval: 208 QRSD Interval: 120 QT Interval: 464 QTC Interval: 512 P [place]: 73 QRS [place]: -67 T Wave [place]: 99 EKG Severity - ABNORMAL ECG - EKG Impression: SINUS RHYTHM EKG Impression: NONSPECIFIC IVCD WITH LAD EKG Impression: PROBABLE ANTEROSEPTAL INFARCT, AGE INDETERM Electronically Signed By: James Lopez 07-Jun-2016 17:24:38
--- NOTE | 2016-06-06 09:23 | GCON ---
[f rep st] CONSULTATION CONSULTATION/HISTORY AND PHYSICAL HISTORY OF PRESENT ILLNESS: The patient is a 65-year-old man with a history of a stroke 1 year ago w ho was found unresponsive in his home with blood in his toilet. He was noted to be extremely cold, a nd brought into the emergency department by EMS. PAST MEDICAL HISTORY: Unknown, other than the stroke alert 1 year ago, for which he declined admissi on. PAST SURGICAL HISTORY: Unknown. MEDICATIONS: Unknown. ALLERGIES: No known drug allergies, from his previous admission. SOCIAL HISTORY: Unknown. FAMILY HISTORY: Unknown. REVIEW OF SYSTEMS: Unobtainable. PHYSICAL EXAMINATION: VITAL SIGNS: Initial temperature reported by EMS was 26, and confirmed upon a rrival to the emergency department. Heart rate 45, blood pressure 75 over palpable. He was saturati ng 100% on a non-rebreather. He had a GCS of 3. HEENT: Pupils equal and round. Head normocephalic , atraumatic. Trachea was midline. He had no jugular venous distention. LUNGS: Coarse bilaterally . Heart was bradycardic. ABDOMEN: Soft and flat. Pelvis was stable. He had no gross deformities of upper or lower extremities. He had mottling of his lower extremities bilaterally. LABS: White count 10, hematocrit 45, platelets 14. INR of 5.7. ABG showed a pH of 7.3, pO2 of 20, and a pCO2 of 30. Creatinine was 3.7. Creatine kinase was almost 23,000. Urine tox was positive fo r cocaine and benzodiazepines. Chest x-ray showed no evidence of hemothorax, pneumothorax, rib fract ures or widened mediastinum. Head CT showed an old stroke, but no evidence of new intracranial hemor rhage or skull fractures. CT scan of the cervical spine showed no acute fractures or dislocations. ASSESSMENT AND PLAN: Status post found down in his home. 1. Profound hypothermia. Thermoguard was placed in the emergency department for intracorporeal rewa rming. 2. Rhabdomyolysis. He will have aggressive IV fluid resuscitation and it is likely he will ultimate ly require dialysis. 3. Disseminated intravascular coagulation. He has been given platelets and FFP as well as vitamin K . 4. Respiratory failure. He underwent rapid sequence intubation in the emergency department and is c urrently being supported by the ventilator. Repeat chest x-ray showed evidence of mucous plugging, a nd Pulmonary Critical Care will be consulted for bronchoscopy and suctioning. /[id number]/MODL
--- NOTE | 2016-06-06 09:33 | ECHO ---
[id number] + + [address] : : [place] [address] : : [phone] + + Adult Echocardiographic Report + ---+ :Name: PAULA WOODSON DStudy Date: 06/06/2016 08:04 AM : : Hospital Admission Number: [id number] Location: 248: :: 1950 Gender: Male Height: 70 in : :Age: 65 yrs Race: MADYA Weight: 176 lb : :Reason For Study: Eval LV Fx : : BSA: 2.0 meters2 : :History: Pt found down x 3 days, Rhabdomyolysis, : :Hypotension, Intubated : + ---+ MMode/2D Measurements & Calculations IVSd: 1.8 cm LVIDd: 4.8 cm FS: 16.6 % Ao root diam: LVPWd: 2.0 cm LVIDs: 4.0 cm EDV(Teich): 3.7 cm 106.5 ml ACS: 2.1 cm ESV(Teich): 69.4 ml EF(Teich): 34.9 % LVLd ap4: 6.6 cm SV(MOD-sp4): EDV(MOD-sp4): 19.0 ml 71.0 ml LVLs ap4: 6.7 cm ESV(MOD-sp4): 52.0 ml EF(MOD-sp4): 26.8 % Normal Measurement Values: + + :LVIDd (3.5-5.7cm) IVSd (0.6-1.1cm) LVPWd (0.6-1.1cm) Aortic Root (2.0-3.7cm)Left Atrium (1.5-4.0cm): :LV Vol(d) (76-115ml) LV Vol(s) (29-48ml) Ejec Fraction (50-65%)PV Jesus (0.6- 1.2m/s) TV Jesus (0.4-1.0m/s) : :MV E Jesus (0.8-1.0m/s)MV A Jesus (0.3-1.0m/s)LVOT Jesus (0.7-1.2m/s) Asc Ao Jesus ( 0.9-1.8m/s) : + + Doppler Measurements & Calculations Ao V2 max: LV V1 max: PA V2 max: PI end-d jesus: 107.2 cm/sec 60.2 cm/sec 61.1 cm/sec 176.5 cm/sec Ao max P.6 mmHg LV V1 max PG: PA max P.5 mmHg 1.5 mmHg TR max jesus: 278.3 cm/sec TR max P.0 mmHg RAP systole: 10.0 mmHg RVSP(TR): 41.0 mmHg Left Ventricle The left ventricle is normal in size. There is severe concentric left ventricular hypertrophy. Ejection Fraction = 25%. There is Doppler evidence for diastolic dysfunction. There is moderate to severe global hypokinesis of the left ventricle. Right Ventricle The right ventricle is normal size. The right ventricular systolic function is moderate to severely reduced. Atria The left atrium is moderately dilated. Right atrial size is normal. Mitral Valve The mitral valve is normal in structure and function. There is no evidence of mitral valve prolapse. There is no mitral valve stenosis. There is trace to mild mitral regurgitation. Tricuspid Valve Normal tricuspid valve. There is trace to mild tricuspid regurgitation. Right ventricular systolic pressure is 41mmHg. There is Doppler evidence for mild pulmonary hypertension. Aortic Valve The aortic valve is normal in structure and function. The aortic valve is trileaflet. There is no aortic stenosis. There is no aortic insufficiency. Pulmonic Valve The pulmonic valve is normal in structure and function. Trace pulmonic valvular regurgitation. Great Vessels The aortic root is normal size. Pericardium/Pleural There is no pericardial effusion. , I DID HIS EF IN MMODE SAX, 2D, SIMPSONS 2 AND 4C, I WAS GETTING AROUND 30% BUT THE EYE TEST FOR HIS EF APPEARS LOWER. WHAT ARE YOUR THOUGHTS??? KEVEN. Conclusion A complete two-dimensional transthoracic echocardiogram was performed (2D, M-mode, Doppler and color flow Doppler). There is severe concentric left ventricular hypertrophy. Ejection Fraction = 25%. There is Doppler evidence for diastolic dysfunction. There is moderate to severe global hypokinesis of the left ventricle. The right ventricle is normal size. The right ventricular systolic function is moderate to severely reduced. The left atrium is moderately dilated. The mitral valve is normal in structure and function. There is trace to mild mitral regurgitation. There is trace to mild tricuspid regurgitation. Right ventricular systolic pressure is 41mmHg. There is Doppler evidence for mild pulmonary hypertension. The aortic valve is normal in structure and function. The aortic valve is trileaflet. Trace pulmonic valvular regurgitation. There is no pericardial effusion. The patient has a thickened and hypokinetic left ventricle with evidence of homogeneous pattern suggestive of an infiltrative cardiomyopathy. The other possibility is hypertensive cardiomyopathy. Final Reading Physician: Yash Balderas signed on 06/06/2016 09:32 AM Ordering Physician: Arline Moncada Performed By: Keven Fu, ANDRIACS
--- NOTE | 2016-06-06 09:40 | PDGENHP ---
History and Physical - Chief Complaint AFTAB - History of Present Illness Mr. Salomon is a 65 yo M with unknown past medical history who was brought into ED last night after being found down at home. Unclear how long he had been down but may have been about two days, found with a pulse but hypothermic and unconscious, dried blood on and around pt but no active bleeding. Pt was brought in, intubated, noted to have temp of 26 C. He had thermo-guard placed and started on warming. He has been constently hypotensive since admission and now on Levophed. He was noted to have CK >23,000, AFTAB with Cr of 2.8 (was 1.1 in 05/2014), hyperkalemic and acidotic. Pt was given insulin, D50, bicarb, K now 5.9. He initially made 1100ml urine in ED but now has made only 50ml urine since 11pm. History Information - Allergies/Home Medication List Allergies/Adverse Reactions: No Known Allergies Allergy (Verified 06/05/16 23:10) Home Medications: Antifungal For Face 06/10/14 [Last Taken Unknown] Verapamil [Verapamil HCl] 06/10/14 [Last Taken Unknown] I have personally reviewed and updated: medical history Past Medical History: Unable to obtain 2/2 clinical status - Surgical History Additional surgical history: Unable to obtain 2/2 clinical status - Family History Additional family history: Unable to obtain 2/2 clinical status - Social History Smoking Status: Unknown if ever smoked Additional social history: Patient's history is not unable to be obtained due to unresponsiveness. Urine tox screen is positive for benzos and cocaine. Review of Systems Review of Systems: unable to obtain 2/2 clinical status Physical Exam Temp Pulse Resp BP Pulse Ox 32.0 C L 73 22 H 87/60 L 94 06/06/16 07:00 06/06/16 08:00 06/06/16 07:00 06/06/16 07:00 06/06/16 08:00 O2 (L/minute) 100 FIO2 (%) 100 Constitutional: no apparent distress Eyes: PERRL, anicteric sclera Ears, Nose, Mouth, Throat: other (intubated) Cardiovascular: regular rate and rhythym, pulses symmetric bilaterally Respiratory: clear to auscultation, other (intubated and on vent) Gastrointestinal: soft, non-tender abdomen, No distension Skin: other (cool to touch), No rash Musculoskeletal: no joint effusions Neurologic: other (sedated, unresponsive), No asterixes Lab Data & Imaging Review 06/06/16 06:00 06/06/16 06:00 WBC 6.57 10^3/uL (3.80-9.50) 06/06/16 06:00 RBC 2.95 10^6/uL (4.40-6.38) L 06/06/16 06:00 Hgb 9.3 g/dL (13.7-17.5) L 06/06/16 06:00 POC Hgb 11.6 gm/dL (14.5-17.3) L 06/05/16 21:05 Hct 28.0 % (40.0-51.0) L 06/06/16 06:00 POC Hct 34 % (42.8-50.6) L 06/05/16 21:05 MCV 94.9 fL (81.5-99.8) 06/06/16 06:00 MCH 31.5 pg (27.9-34.1) 06/06/16 06:00 MCHC 33.2 g/dL (32.4-36.7) 06/06/16 06:00 RDW 16.4 % (11.5-15.2) H 06/06/16 06:00 Plt Count 51 10^3/uL (150-400) L 06/06/16 06:00 MPV 10.6 fL (8.7-11.7) 06/06/16 06:00 Neut % (Auto) 93.8 % (39.3-74.2) H 06/06/16 06:00 Lymph % (Auto) 2.7 % (15.0-45.0) L 06/06/16 06:00 Price % (Auto) 2.1 % (4.5-13.0) L 06/06/16 06:00 Eos % (Auto) 0.0 % (0.6-7.6) L 06/06/16 06:00 Baso % (Auto) 0.2 % (0.3-1.7) L 06/06/16 06:00 Nucleat RBC Rel Count 1.2 % (0.0-0.2) H 06/06/16 06:00 Absolute Neuts (auto) 6.16 10^3/uL (1.70-6.50) 06/06/16 06:00 Absolute Lymphs (auto) 0.18 10^3/uL (1.00-3.00) L 06/06/16 06:00 Absolute Monos (auto) 0.14 10^3/uL (0.30-0.80) L 06/06/16 06:00 Absolute Eos (auto) 0.00 10^3/uL (0.03-0.40) L 06/06/16 06:00 Absolute Basos (auto) 0.01 10^3/uL (0.02-0.10) L 06/06/16 06:00 Absolute Nucleated RBC 0.08 10^3/uL (0-0.01) H 06/06/16 06:00 Immature Gran % 1.2 % (0.0-1.1) H 06/06/16 06:00 Seg Neutrophils % 71 % 06/05/16 20:00 Band Neutrophils % 17 % 06/05/16 20:00 Lymphocytes % 6 % 06/05/16 20:00 Monocytes % 5 % 06/05/16 20:00 Metamyelocytes % 1 % 06/05/16 20:00 Immature Gran # 0.08 10^3/uL (0.00-0.10) 06/06/16 06:00 Absolute Seg Neuts 6.95 10^/uL (1.70-6.50) H 06/05/16 20:00 Absolute Band Neuts 1.66 10^3/uL (0.00-0.70) H 06/05/16 20:00 Absolute Lymphocytes 0.59 10^3/uL (1.00-3.00) L 06/05/16 20:00 Absolute Monocytes 0.49 10^3/uL (0.30-0.80) 06/05/16 20:00 Absolute Metamyelocyte 0.10 10^3/mL (0.00-0.00) H 06/05/16 20:00 Nucleated RBCs 2 /100 WBC (0-0) H 06/05/16 20:00 Platelet Estimate DECREASED (ADEQ) L 06/05/16 20:00 Giant Platelets PRESENT H 06/05/16 20:00 Normal RBC Morphology SEE COMMENT (NORMAL) 06/06/16 06:00 Polychromasia 1+ H 06/05/16 20:00 Tear Drop Cells 3+ H 06/05/16 20:00 Oval Macrocytes 2+ H 06/05/16 20:00 Echinocytes 3+ H 06/05/16 20:00 Elliptocytes 1+ H 06/05/16 20:00 Keratocytes 1+ H 06/05/16 20:00 Schistocytes 1+ H 06/05/16 20:00 Smear Review By Cancelled 06/06/16 02:20 PT 44.7 SEC (12.0-15.0) H D 06/06/16 06:00 INR 4.64 (0.83-1.16) H 06/06/16 06:00 APTT 64.8 SEC (23.0-38.0) H 06/06/16 06:00 Fibrinogen < 60 mg/dL (214-456) L* 06/06/16 06:00 D-Dimer > 20.00 ug/mLFEU (0.00-0.50) H 06/06/16 06:00 Coag Pathologist Edwardo HUGHES MD 06/06/16 06:00 Puncture Site LEFT RADIAL 06/06/16 06:00 Patient Temperature 31.5 DEGREES 06/06/16 06:00 pCO2 28 mmHg (34-38) L 06/06/16 06:00 pO2 43 mmHg (65-75) L D 06/06/16 06:00 Total CO2 15 mEq/L (23-27) L 06/06/16 06:00 ABG pH 7.29 (7.35-7.45) L 06/06/16 06:00 ABG PO2/FiO2 Ratio 289 RATIO 06/06/16 02:20 ABG O2 Saturation 81 % (92-95) L D 06/06/16 06:00 ABG Base Excess -12.3 mEq/L (-2.5-2.5) L 06/06/16 06:00 VBG pH 7.33 (7.31-7.42) 06/05/16 23:40 VBG HCO3 16 mEQ/L (22-26) L 06/05/16 23:40 VBG Total CO2 17 mEq/L (23-27) L 06/05/16 23:40 VBG O2 Saturation 56 % (65-75) L 06/05/16 23:40 VBG Base Excess -10.6 mEq/L (-2.5-2.5) L 06/05/16 23:40 VBG Lactic Acid 6.9 mmol/L (0.7-2.1) H 06/06/16 06:00 Mixed VBG pCO2 28 mmHg (40-44) L 06/05/16 23:40 Mixed VBG pO2 25 mmHg (35-40) L 06/05/16 23:40 Total O2 Concentration 80.0 LITERS 06/06/16 06:00 O2 Concentration % 100 % (0-100) 06/06/16 02:20 Actual Respiration Rate 24 06/06/16 06:00 Set Respiration Rate 22 06/06/16 06:00 SIMV YES 06/06/16 06:00 Tidal Volume 550 06/06/16 06:00 End Tidal CO2 15 06/06/16 06:00 PEEP 5 06/06/16 06:00 Peak Inspir Pressure 28.6 06/06/16 02:20 Pressure Support 7 06/06/16 06:00 POC Sodium 137 mEq/L (134-144) 06/05/16 21:05 Sodium 138 mEq/L (134-144) 06/06/16 06:00 POC Potassium 5.1 mEq/L (3.3-5.0) H 06/05/16 21:05 Potassium 5.9 mEq/L (3.5-5.2) H 06/06/16 06:00 POC Chloride 110 mEq/L (96-108) H 06/05/16 21:05 Chloride 107 mEq/L (97-110) 06/06/16 06:00 Carbon Dioxide 16 mEq/l (22-31) L 06/06/16 06:00 Bicarbonate 14 mEq/L (22-26) L 06/06/16 06:00 Anion Gap 15 mEq/L (8-16) 06/06/16 06:00 POC BUN 98 mg/dL (7-23) H 06/05/16 21:05 BUN 116 mg/dL (7-23) H* 06/06/16 06:00 Creatinine 2.9 mg/dL (0.7-1.3) H 06/06/16 06:00 POC Creatinine 3.3 mg/dL (0.8-1.5) H 06/05/16 21:05 Estimated GFR 22 06/06/16 06:00 Glucose 122 mg/dL (70-100) H D 06/06/16 06:00 POC Glucose 89 mg/dL (70-100) 06/06/16 00:22 Calcium 7.0 mg/dL (8.5-10.4) L 06/06/16 06:00 Phosphorus 9.6 mg/dL (2.5-4.5) H 06/06/16 06:00 Magnesium 2.7 mg/dL (1.6-2.3) H 06/06/16 02:20 Total Bilirubin 5.6 mg/dL (0.1-1.4) H 06/06/16 02:20 Conjugated Bilirubin 3.0 mg/dL (0.0-0.5) H 06/06/16 02:20 Unconjugated Bilirubin 2.6 mg/dL (0.0-1.1) H 06/06/16 02:20 AST 1724 IU/L (17-59) H 06/06/16 02:20 ALT 559 IU/L (21-72) H 06/06/16 02:20 Alkaline Phosphatase 53 IU/L (38-126) 06/06/16 02:20 Creatine Kinase 02615 IU/L (0-224) H 06/06/16 06:00 CK-MB (CK-2) Fraction 207.00 ng/mL (0-3.19) H 06/06/16 06:00 CK-MB (CK-2) % 1.5 % (0.0-4.0) 06/06/16 06:00 Creatine Kinase Interp NEGATIVE (NEGATIVE) 06/06/16 06:00 Troponin I 0.263 ng/mL (0-0.034) H 06/06/16 02:20 Total Protein 4.3 g/dL (6.3-8.2) L 06/06/16 02:20 Albumin 1.8 g/dL (3.5-5.0) L 06/06/16 02:20 TSH 2.780 uIU/mL (0.465-4.680) 06/05/16 20:00 Cortisol AM Sample > 123.2 ug/dL (4.5-22.7) H 06/06/16 02:20 Urine Color RUSSELL 06/05/16 20:15 Urine Appearance HAZY 06/05/16 20:15 Urine pH 5.0 (5.0-7.5) 06/05/16 20:15 Ur Specific Edmondson 1.014 (1.002-1.030) 06/05/16 20:15 Urine Protein 1+ (NEGATIVE) H 06/05/16 20:15 Urine Ketones NEGATIVE (NEGATIVE) 06/05/16 20: Urine Blood 3+ (NEGATIVE) H 06/05/16 20:15 Urine Nitrate NEGATIVE (NEGATIVE) 06/05/16 20:15 Urine Bilirubin NEGATIVE (NEGATIVE) 06/05/16 20: Urine Urobilinogen 4.0 EU (0.2-1.0) H 06/05/16 20:15 Ur Leukocyte Esterase NEGATIVE (NEGATIVE) 06/05/16 20:15 Urine RBC 1-3 /hpf (0-3) 06/05/16 20:15 Urine WBC 1-3 /hpf (0-3) 06/05/16 20:15 Ur Epithelial Cells NONE SEEN /lpf (NONE-1+) 06/05/16 20: Hyaline Casts 1-5 /lpf (0-1) 06/05/16 20:15 Urine Sperm PRESENT /hpf (NONE SEEN) 06/05/16 20:15 Urine Osmolality 482 mosmo/kg (300-900) 06/05/16 20:15 Ur Random Creatinine 76.0 mg/dL 06/05/16 20:15 Ur Random Sodium < 5.0 mEq/L (30-90) L 06/05/16 20:15 Ur Random Potassium 47.7 mEq/L (0.5-35.0) H 06/05/16 20:15 Ur Random Urea Nitrogn 774.0 mg/dL 06/05/16 20:15 Urine Glucose NEGATIVE (NEGATIVE) 06/05/16 20: Salicylates < 1.0 mg/dL (2.0-20.0) L 06/06/16 06:00 Urine Opiates Screen NEGATIVE ng/mL (NEGATIVE) 06/05/16 20: Acetaminophen < 10 mcg/mL (10.0-30.0) L 06/06/16 06:00 Urine Barbiturates NEGATIVE ng/mL (NEGATIVE) 06/05/16 20:15 Ur Phencyclidine Scrn NEGATIVE ng/mL (NEGATIVE) 06/05/16 20:15 Ur Amphetamines Screen NEGATIVE ng/mL (NEGATIVE) 06/05/16 20:15 U Benzodiazepines Scrn 302 ng/mL (NEGATIVE) 06/05/16 20:15 Urine Cocaine Screen 5467 ng/mL (NEGATIVE) 06/05/16 20:15 U Marijuana (THC) Screen NEGATIVE ng/mL (NEGATIVE) 06/05/16 20:15 Ethyl Alcohol < 10 mg/dL (0-10) 06/06/16 06:00 Patient ABO/Rh A POSITIVE 06/05/16 20:00 Assessment & Plan Assessment: Assessment/Plan: AFTAB: Cr of 2.8, previous baseline 1.1 from one year ago. Likely multifactorial in setting of shock and rhabdomyolysis, UA consistent with rhabdo. Pt now oliguric. - Will start pt on CRRT. - Will not use any anticoagulation on CRRT for now. - Will monitor lytes closely. - Would continue to give fluids for now at rate of 200ml/hr, will not remove any fluid with CRRT for now. Hyperkalemia: K currently 5.9 after being given bicarb, insulin and D50. - Will modulate further with CRRT. Metabolic acidosis: from AFTAB as well as lactic acidosis. Will modulate further with CRRT. Thank you for the interesting consult. Nephrology will continue to follow, please call if you have any additional questions or concerns.
--- NOTE | 2016-06-06 09:42 | GCON ---
[f rep st] CONSULTATION MEMORIAL MARKER DESIGNER CONSULTATION REASON FOR ADMISSION: Found down, respiratory failure. HISTORY OF PRESENT ILLNESS: The patient is a 65-year-old white male with unknown past medical histor y. He was found down by friends he had last seen 2 days prior. He arrived in the emergency room, wa s markedly hypothermic, hypoxemic, hypotensive. He was intubated, placed on mechanical ventilation. He was subsequently admitted to the intensive care unit. Currently, he is obtunded on mechanical ve ntilation, unable to provide any history. All history is gleaned from the medical record. Thermogua rd has been placed to attempt to re-warm. PAST MEDICAL HISTORY: Unknown. PAST SURGICAL HISTORY: Unknown. ALLERGIES: No known allergies to medications. SOCIAL HISTORY: Unknown. PHYSICAL EXAMINATION: VITAL SIGNS: Blood pressure is 87/60, pulse is 69, respirations 22, temperatu re is 32.0, oxygen saturation is 85% on mechanical ventilation. GENERAL: He is a thin 65-year-old m otilia who is obtunded on mechanical ventilation. HEENT: Eyes are DANIEL, EOMI. Throat: Endotracheal t ube is in good position. NECK: Supple. No cervical adenopathy. HEART: Regular rate and rhythm wi th a 2/6 systolic murmur without radiation. LUNGS: Markedly diminished breath sounds on the left. ABDOMEN: Soft, nontender. Bowel sounds are diminished. EXTREMITIES: No clubbing, cyanosis, or magdaleno ma. LABORATORIES: White count is 6.5, hemoglobin 9.3, hematocrit 28, platelet count 51. INR is 4.64. D -dimer is less than 60. Arterial blood gas: pH is 7.29, pCO2 of 28, pO2 of 43, bicarb 15, oxygen sa turation is 81%; this is on an IMV of 22, tidal volume 550 +7 of pressure support, +5 of PEEP. Sodiu m 138, potassium 5.9, chloride 107, CO2 is 16, BUN is 116, creatinine 2.9. AST is elevated at 1724, ALT 559. Phosphorus is high at 9.6, CPK is 13,488. Urinalysis: pH 5, specific gravity 1.014, 4+ ur obilinogen. Chest x-ray shows significant atelectasis on the left with left-sided shift of his heart . IMPRESSION: 1. Acute respiratory failure. 2. Hypothermia. 3. Shock. 4. Acute renal failure. 5. Rhabdomyolysis. 6. Severe metabolic acidosis. 7. Thrombocytopenia. 8. Possible gastrointestinal bleed. 9. Severe atelectasis on the left, likely mucous plugging. RECOMMENDATIONS: 1. Continue mechanical ventilation for now. 2. Will perform fiberoptic bronchoscopy at soonest to improve his respiratory status. 3. Agree with CRRT. 4. Wean pressors if tolerated. 5. Agree with re-warming with Thermoguard. 6. We will attempt to find family members. PROGNOSIS: Grim. Thank you very much. /[id number]/MODL
--- NOTE | 2016-06-06 10:15 | DX ---
AP Chest June 06, 2016 Indication: Post bronchoscopy. Comparison: June 06, 2016, 0610 hours. Findings: There is no significant change in the compressive atelectatic and consolidative left lung f indings. The right lung remains relatively clear. There is some very mild midline shift which is stab le. No pneumothorax. Calcified atherosclerotic disease of the aorta is present. Bones are grossly unremarkable. Impression: No evidence of pneumothorax post bronchoscopy. Unchanged left lung consolidation post bro nchoscopy.
[2016-06-06] MEDS ORDERED: ALBUMIN 5% 500 ML BOTTLE IV ONE (10:39)
[2016-06-06 10:46] LABS: ECHINOCYTES 1+; GIANT PLATELETS PRESENT; LARGE PLATELETS PRESENT; MACROCYTES 1+; PLATELET ESTIMATE DECREASED (ADEQ); POLYCHROMASIA 1+; SCHISTOCYTES 1+
--- NOTE | 2016-06-06 11:04 | TRAUMAPN ---
Assessment/Plan: 65yo M found down, hypothermic, rhabdomyolysis, acute renal failuer - Continues to warm with Thermaguard cath in place, Temp 33.5 this AM - Did have some purposeful movement with bronch but hasnt had much more than that - Continues to have DIC picture, INR somewhat better but will improve with blood products and warming - Temp dialysis cath placed this AM for CRRT - Abdomen is soft, nondistended and no outward signs of trauma. There was some discussion over whether or not to scan abdomen at this time given elevated lactate but given multiple other medical issues I have little concern we are missing intra-abdominal catastrophe at this time. Would scan once he medically improves Subjective: Intubated, sedated. Moving some to pain. Not following commands Objective: Vital Signs Temp Pulse Resp BP Pulse Ox 33.5 C L 80 22 H 80/60 L 85 L 06/06/16 10:00 06/06/16 10:54 06/06/16 10:54 06/06/16 10:54 06/06/16 10:54 Laboratory Results 06/06/16 06:00 06/06/16 06:00 06/05/16 06/06/16 06/07/16 05:59 05:59 05:59 Intake Total 8137 1500 Output Total 1150 Balance 6987 1500 PT 44.7 SEC (12.0-15.0) H D 06/06/16 06:00 INR 4.64 (0.83-1.16) H 06/06/16 06:00 Physical Exam - Physical Exam General Appearance: other (intubated, sedated, disheveled) Abdomen: other (soft, nondistended, BS hypoactive)
[2016-06-06 11:06] LABS: PNEUMOCYSTIS REQUEST RECEIVED
[2016-06-06] MEDS: VASOPRESSIN/DEXTROSE 250 ML IV SCH (11:08)
[2016-06-06] MEDS: CHLORHEXIDINE GLUCONATE 15 ML UDL PO SCH ×2 (11:10→22:36)
[2016-06-06] MEDS: PANTOPRAZOLE SODIUM 40 MG in NS 100 ML IV SCH ×2 (11:10→22:30)
[2016-06-06] MEDS ORDERED: ALBUMIN 5% 500 ML IV ONE (11:30)
[2016-06-06 11:53] LABS: BASE EXCESS -8.2 mEq/L (-2.5-2.5); BICARBONATE 17 mEq/L (22-26); MEASURED OXYGEN SATURATION 99 % (92-95); PCO2 30 mmHg (34-38); PO2 232 mmHg (65-75); TCO2 18 mEq/L (23-27)
[2016-06-06 11:54] LABS: O2 CONCENTRATIION 100 % (0-100); P/F RATIO 232 RATIO; SIMV YES
[2016-06-06 11:55] LABS: END TIDAL CO2 19; PATIENT RATE 22; PRESSURE SUPPORT 7
--- NOTE | 2016-06-06 11:59 | GOP ---
[f rep st] OPERATIVE REPORT DATE OF OPERATION: 06/06/2016 SURGEON: Jonathan Valdez MD ANESTHESIA: Local with sedation. PREOPERATIVE DIAGNOSIS: Acute renal failure. POSTOPERATIVE DIAGNOSIS: Acute renal failure. PROCEDURE PERFORMED: Left femoral vein temporary dialysis catheter insertion with ultrasound guidance. FINDINGS: 12Fr 20cm temporary dialysis catheter placed without incident SPECIMENS: None. ESTIMATED BLOOD LOSS: 2 cc. INDICATIONS: The patient was admitted emergently and has been comatose since his admission. Given his acute rhabdomyolysis and renal failure, I was asked to place an urgent temporary dialysis catheter for CRRT and hemofiltration. Given the fact that the patient has no family members available or to contact, this was done on an urgent emergent basis after discussing the necessity with both the ICU and medical care providers. DESCRIPTION OF PROCEDURE: The left groin was prepped and draped in typical sterile fashion. A World Health Organization time-out was performed ending with all in agreement. Using ultrasound guidance, I identified the left femoral vein, accessed it. Using a Seldinger technique, I ran a wire up the left femoral vein, then serial dilated. After dilating, I placed the Mahurkar successfully into the vein. It flushed well without any obstruction. I attached it to the skin with an interrupted nylon suture. I placed a Biopatch and a sterile dressing, removed my drapes. The patient tolerated the procedure well without any intraprocedural complications. DRAINS: None. /[id number]/MODL MTDD
[2016-06-06 12:12] LABS: INR 2.08 (0.83-1.16); PROTIME(PATIENT) 23.5 SEC (12.0-15.0)
[2016-06-06 12:13] LABS: APTT 42.7 SEC (23.0-38.0)
[2016-06-06 12:19] LABS: ANION GAP 16 mEq/L (8-16); CALCIUM 6.8 mg/dL (8.5-10.4); CARBON DIOXIDE 19 mEq/l (22-31); CHLORIDE 105 mEq/L (97-110); GLUCOSE 133 mg/dL (70-100); SODIUM 140 mEq/L (134-144)
[2016-06-06 12:22] LABS: FIBRINOGEN 100 mg/dL (214-456)
[2016-06-06 12:25] LABS: PLATELET COUNT 24 10^3/uL (150-400)
[2016-06-06] MEDS ORDERED: SODIUM PHOS 20 MM in D5W 250 ML IV PRN (12:30)
[2016-06-06] MEDS ORDERED: POTASSIUM Cl (KCl) 100 ML IV PRN (12:30)
[2016-06-06] MEDS ORDERED: CALCIUM CHLORIDE 5.7 GM in NS 1,000 ML IV SCH (12:30)
[2016-06-06] MEDS ORDERED: MAGNESIUM SULF 2 GM/WATER 50 ML IV PRN (12:30)
[2016-06-06] MEDS ORDERED: PRE-DILUTION FILTER SET 100 ****SEND #2 INITIALLY MISC PRN (12:30)
[2016-06-06 12:32] LABS: CREATININE 2.8 mg/dL (0.7-1.3); GLOMERULAR FILTRATION RATE 23
[2016-06-06 12:36] LABS: CK-MB INTERPRETATION NEGATIVE (NEGATIVE)
--- NOTE | 2016-06-06 13:11 | PDINTPN ---
Croze Cutter Helper Progress Note Assessment/Plan: Assessment: Long discussion with patient's step-son, Nino. I explained to him Joss's poor prognosis. It is his wish that patient be made DNR Plan: 06/06/16 13:10 Objective: Vital Signs Temp Pulse Resp BP Pulse Ox 34.9 C L 95 22 H 99/80 L 88 L 06/06/16 12:29 06/06/16 12:29 06/06/16 12:29 06/06/16 12:29 06/06/16 12:29 Laboratory Results 06/06/16 11:40 06/06/16 11:40 06/05/16 06/06/16 06/07/16 05:59 05:59 05:59 Intake Total 8587 3738 Output Total 1150 Balance 7437 3738 PT 23.5 SEC (12.0-15.0) H D 06/06/16 11:40 INR 2.08 (0.83-1.16) H 06/06/16 11:40 ICD10 Worksheet Patient Problems: Problems Problem Status Diagnosed Hypothermia Acute Respiratory failure Acute Rhabdomyolysis Acute
[2016-06-06] MEDS: BGK 4/2.5 PRISMASATE 5,000 ML DIAL SCH ×3 (13:31→22:36)
[2016-06-06] MEDS: ACCESSORY DRAIN 1 EA BAG***SEND #2 INITIALLY MISC PRN ×2 (13:36→15:43)
[2016-06-06] MEDS: NS 1,000 ML MISC SCH ×4 (13:40→17:06)
[2016-06-06 14:06] LABS: BASE EXCESS -7.8 mEq/L (-2.5-2.5); BICARBONATE 18 mEq/L (22-26); IONIZED CALCIUM 0.91 MMOL/L (1.12-1.30); MEASURED OXYGEN SATURATION 95 % (92-95); PCO2 35 mmHg (34-38); PO2 90 mmHg (65-75); TCO2 19 mEq/L (23-27)
[2016-06-06 14:07] LABS: O2 CONCENTRATIION 100 % (0-100); P/F RATIO 90 RATIO; SIMV YES
[2016-06-06 14:08] LABS: PATIENT RATE 22; PRESSURE SUPPORT 7
[2016-06-06 14:10] LABS: % IMMATURE GRANULYOCYTES 1.3 % (0.0-1.1); ABSOLUTE IMMATURE GRANULOCYTES 0.02 10^3/uL (0.00-0.10); ABSOLUTE NRBC COUNT 0.14 10^3/uL (0-0.01); ADD DIFF? NO; ADD MORPH? YES; ADD SCAN? NO; ATYPICAL LYMPHOCYTE FLAG 0 (0-99); FRAGMENT RBC FLAG 0 (0-99); HEMATOCRIT 22.5 % (40.0-51.0); HEMOGLOBIN 7.8 g/dL (13.7-17.5); LEFT SHIFT FLG 80 (0-99); LIPEMIA HEMOLYSIS FLAG 90 (0-99); MEAN CELL HEMOGLOBIN 31.7 pg (27.9-34.1); MEAN CELL HEMOGLOBIN CONCENTR. 34.7 g/dL (32.4-36.7); MEAN CELL VOLUME 91.5 fL (81.5-99.8); MEAN PLATELET VOLUME 9.9 fL (8.7-11.7); PLATELET CLUMPS FLAG 0 (0-99); PLATELET COUNT 75 10^3/uL (150-400); RED BLOOD CELL COUNT 2.46 10^6/uL (4.40-6.38); RED CELL DISTRIBUTION WIDTH 15.9 % (11.5-15.2)
[2016-06-06 14:12] LABS: NRBC-AUTO% 9.3 % (0.0-0.2)
[2016-06-06 14:49] LABS: ANION GAP 18 mEq/L (8-16); CALCIUM 6.7 mg/dL (8.5-10.4); CARBON DIOXIDE 18 mEq/l (22-31); CHLORIDE 104 mEq/L (97-110); GLUCOSE 121 mg/dL (70-100); MAGNESIUM 2.3 mg/dL (1.6-2.3); SODIUM 140 mEq/L (134-144)
[2016-06-06 14:58] LABS: CREATININE 2.9 mg/dL (0.7-1.3); GLOMERULAR FILTRATION RATE 22
[2016-06-06 15:18] LABS: LACTATE DEHYDROGENASE 5618 IU/L (313-618)
[2016-06-06 15:29] LABS: ECHINOCYTES 1+; HYPOCHROMIA 1+; PLATELET ESTIMATE DECREASED (ADEQ)
--- NOTE | 2016-06-06 15:41 | HOSPPROG ---
Hospitalist Progress Note Assessment/Plan: DIAGNOSIS: # SEVERE SHOCK AND MULTIORGAN FAILURE # PROFOUND HYPOTHERMIA # ACUTE RESP FAILURE # ACUTE RENAL FAILURE # UNRESPONSIVE # RHABDOMYOLYSIS # # COCAINE ABUSE PLANS: -currently support includes mech vent, pressors, warmer, and is to start CRRT today -continue abx -unclear if there is infection but high suspicion yusra for aspiration; continue zosyn for now I have reviewed the condition and care plan with Dr Stanford Also seen on multidisc rounds SUBJECTIVE: no symptom eval as pt comatose OBJECTIVE Vitals reviewed: BP and pulse holding steady on pressor; resps per vent Card Monitor: NSR Exam: comatose tubes include central venous line, CRRT line, thermogard, and ET tube/mech vent ; all lines in good position and well secured skin warm dry color ok resps not labored lungs clear BSs heart regular abd soft nondistended nontender, bowel sounds present limbs warm, no edema iv site ok Objective: Vital Signs Temp Pulse Resp BP Pulse Ox 36.5 C 98 22 H 102/74 85 L 06/06/16 15:00 06/06/16 15:00 06/06/16 15:00 06/06/16 15:00 06/06/16 15:00 Microbiology 06/06/16 09:00 Gram Stain - Final Lung Left Lower Lobe - Bronch Man[place]us Laboratory Results 06/06/16 14:00 06/06/16 14:00 06/05/16 06/06/16 06/07/16 06:59 06:59 06:59 Intake Total 8587 4862 Output Total 1150 60 Balance 7437 4802 PT 23.5 SEC (12.0-15.0) H D 06/06/16 11:40 INR 2.08 (0.83-1.16) H 06/06/16 11:40 ICD10 Worksheet Patient Problems: Problems Problem Status Diagnosed Hypothermia Acute Respiratory failure Acute Rhabdomyolysis Acute
[2016-06-06 16:36] LABS: CYTOLOGY REQUISITION RECEIVED
[2016-06-06 17:53] LABS: PLATELET COUNT 63 10^3/uL (150-400)
[2016-06-06 18:03] LABS: POTASSIUM 5.7 mEq/L (3.5-5.2)
[2016-06-06 18:13] LABS: APTT 41.1 SEC (23.0-38.0)
[2016-06-06 18:23] LABS: FIBRINOGEN 117 mg/dL (214-456)
[2016-06-06 18:33] LABS: INR 2.16 (0.83-1.16); PROTIME(PATIENT) 24.3 SEC (12.0-15.0)
[2016-06-06 20:02] LABS: CK-MB INTERPRETATION NEGATIVE (NEGATIVE)
[2016-06-06 21:22] LABS: BASE EXCESS -6.6 mEq/L (-2.5-2.5); BICARBONATE 17 mEq/L (22-26); IONIZED CALCIUM 0.96 MMOL/L (1.12-1.30); MEASURED OXYGEN SATURATION 99 % (92-95); PCO2 30 mmHg (34-38); PO2 191 mmHg (65-75); TCO2 18 mEq/L (23-27)
[2016-06-06 21:48] LABS: ANION GAP 12 mEq/L (8-16); CALCIUM 6.4 mg/dL (8.5-10.4); CARBON DIOXIDE 20 mEq/l (22-31); CHLORIDE 104 mEq/L (97-110); GLUCOSE 88 mg/dL (70-100); MAGNESIUM 2.1 mg/dL (1.6-2.3); POTASSIUM 5.6 mEq/L (3.5-5.2); SODIUM 136 mEq/L (134-144)
[2016-06-06 21:54] LABS: CREATININE 2.2 mg/dL (0.7-1.3); GLOMERULAR FILTRATION RATE 30
[2016-06-06 22:07] LABS: LACTATE DEHYDROGENASE 7370 IU/L (313-618)
[2016-06-07] MEDS ORDERED: HEPARIN 10,000 UNIT/10 ML MDV ONE (00:30)
[2016-06-07] MEDS: NOREPINEPHRINE BITARTRATE 4 MG in D5W 500 ML IV SCH ×4 (01:33→10:56)
[2016-06-07 04:01] LABS: BASE EXCESS -8.9 mEq/L (-2.5-2.5); BICARBONATE 17 mEq/L (22-26); IONIZED CALCIUM 0.95 MMOL/L (1.12-1.30); MEASURED OXYGEN SATURATION 92 % (92-95); O2 CONCENTRATIION 100 % (0-100); P/F RATIO 77 RATIO; PCO2 39 mmHg (34-38); PO2 77 mmHg (65-75); SIMV YES; TCO2 18 mEq/L (23-27)
[2016-06-07 04:02] LABS: PATIENT RATE 24; PIP 26.6; PRESSURE SUPPORT 7
[2016-06-07 04:20] LABS: ADD MORPH? YES; ADD SCAN? YES; ANION GAP 11 mEq/L (8-16); ATYPICAL LYMPHOCYTE FLAG 0 (0-99); CALCIUM 6.1 mg/dL (8.5-10.4); CARBON DIOXIDE 19 mEq/l (22-31); CHLORIDE 106 mEq/L (97-110); FRAGMENT RBC FLAG 0 (0-99); GLUCOSE 77 mg/dL (70-100); HEMATOCRIT 26.4 % (40.0-51.0); LIPEMIA HEMOLYSIS FLAG 90 (0-99); MAGNESIUM 2.1 mg/dL (1.6-2.3); MEAN CELL HEMOGLOBIN 31.1 pg (27.9-34.1); MEAN CELL HEMOGLOBIN CONCENTR. 34.1 g/dL (32.4-36.7); MEAN CELL VOLUME 91.3 fL (81.5-99.8); PLATELET CLUMPS FLAG 0 (0-99); POTASSIUM 5.8 mEq/L (3.5-5.2); RED BLOOD CELL COUNT 2.89 10^6/uL (4.40-6.38); RED CELL DISTRIBUTION WIDTH 16.3 % (11.5-15.2); SODIUM 136 mEq/L (134-144)
[2016-06-07 04:23] LABS: LEFT SHIFT FLG 290 (0-99)
[2016-06-07] MEDS: BGK 4/2.5 PRISMASATE 5,000 ML DIAL SCH ×3 (04:23→08:16)
[2016-06-07 04:25] LABS: CREATININE 1.8 mg/dL (0.7-1.3); GLOMERULAR FILTRATION RATE 38; PLATELET COUNT 20 10^3/uL (150-400)
[2016-06-07 04:41] LABS: LACTATE DEHYDROGENASE 7224 IU/L (313-618)
[2016-06-07 04:54] LABS: PLATELET ESTIMATE DECREASED (ADEQ); SCAN POSITIVE
[2016-06-07] MEDS ORDERED: LORazepam 2 MG/ML INJ IVP PRN (04:57)
[2016-06-07 05:06] LABS: SCHISTOCYTES 1+
[2016-06-07 05:07] LABS: ECHINOCYTES 1+; MICROCYTES 1+; POLYCHROMASIA 1+
[2016-06-07] MEDS: LORazepam 2 MG/ML INJ IVP PRN ×2 (05:07→09:58)
[2016-06-07] MEDS: NS 1,000 ML IV SCH ×2 (05:07→10:19)
[2016-06-07 05:08] LABS: KERATOCYTES 1+
[2016-06-07 05:10] LABS: ADD DIFF? YES
--- NOTE | 2016-06-07 07:28 | PDINTPN ---
Prism Inspector Progress Note Assessment/Plan: Assessment/Plan: * Found down, likely s/p arrest * Anoxic brain injury-no inprovement * Acute Resp Failure-stable on vent -not extubatable * Shock-nearly maxed out on pressors * Metabolic acidosis * Acute renal failure-on CRRT * Thrombocytopenia-count at 20 -transfuse * Rhabdo-improved * Hypothermia-resolved * CMP * Possible Sz * DNR Prognosis grim for meaningful recovery. Case discussed with RT, nursing Will discuss with stepson today 40 min of critical care time spent with patient Subjective: coma Objective: Vital Signs Temp Pulse Resp BP Pulse Ox 36.5 C 103 H 23 H 118/88 H 88 L 06/07/16 06:00 06/07/16 06:00 06/07/16 06:00 06/07/16 06:00 06/07/16 06:00 Microbiology 06/06/16 09:00 Mycobacterial Smear (NATACHA) - Final Bronchial [place] - Other 06/06/16 09:00 Gram Stain - Final Lung Left Lower Lobe - Bronch [place] Laboratory Results 06/07/16 03:58 06/07/16 03:58 06/06/16 06/07/16 06/08/16 05:59 05:59 05:59 Intake Total 8587 05416 Output Total 1150 4241 Balance 7437 6465 PT 24.3 SEC (12.0-15.0) H 06/06/16 17:30 INR 2.16 (0.83-1.16) H 06/06/16 17:30 Laboratory Results 06/07/16 03:58 06/07/16 03:58 06/07/16 03:58 Patient Temperature 36.5 DEGREES pCO2 39 H mmHg (34 - 38) pO2 77 H D mmHg (65 - 75) Total CO2 18 L mEq/L (23 - 27) ABG pH 7.26 L (7.35 - 7.45) ABG PO2/FiO2 Ratio 77 RATIO ABG O2 Saturation 92 % (92 - 95) ABG Base Excess -8.9 L mEq/L (-2.5 - 2.5) O2 Concentration % 100 % Actual Respiration Rate 24 Set Respiration Rate 22 SIMV YES Tidal Volume 550 PEEP 5 Peak Inspir Pressure 26.6 Pressure Support 7 Calcium 6.1 L mg/dL (8.5 - 10.4) Ionized Calcium 0.95 L MMOL/L (1.12 - 1.30) Phosphorus 4.4 mg/dL (2.5 - 4.5) Magnesium 2.1 mg/dL (1.6 - 2.3) Lactate Dehydrogenase 7224 H IU/L (313 - 618) 06/05/16 20:25 Blood Culture - Preliminary Blood Blood Panel (PCR) - Final Gram Positive Cocci Clusters No Organisms Detected - Time Spent With Patient Time Spent With Patient: 40 Physical Exam - Physical Exam General Appearance: obtunded, No alert EENT: PERRL/EOMI, normal ENT inspection Neck: non-tender, full range of motion, supple Respiratory: rhonchi (few), No normal breath sounds, No respiratory distress, No stridor, No wheezing Cardiac/Chest: normal peripheral pulses, regular rate, rhythm, systolic murmur Peripheral Pulses: 2+: carotid (R), carotid (L), femoral (R), femoral (L), dorsalis-pedis (R), dorsalis-pedis (L) Abdomen: normal bowel sounds, non-tender, soft Male Genitalia: deferred Rectal: deferred Skin: normal color, warm/dry Neuro/Psych: No alert, No oriented x 3 ICD10 Worksheet Patient Problems: Problems Problem Status Diagnosed Hypothermia Acute Respiratory failure Acute Rhabdomyolysis Acute
[2016-06-07] MEDS ORDERED: PIPERACILLIN/TAZO 2.25 GM/DEX 50 ML IV SCH (08:00)
[2016-06-07 08:21] VITALS: O2SAT 34
[2016-06-07] MEDS: CHLORHEXIDINE GLUCONATE 15 ML UDL PO SCH (08:23)
[2016-06-07] MEDS: PANTOPRAZOLE SODIUM 40 MG in NS 100 ML IV SCH (08:23)
[2016-06-07 09:10] LABS: IONIZED CALCIUM 0.94 MMOL/L (1.12-1.30)
[2016-06-07] MEDS ORDERED: BGK 4/2.5 PRISMASATE 5,000 ML DIAL SCH (09:30)
[2016-06-07 09:46] LABS: ANION GAP 12 mEq/L (8-16); CARBON DIOXIDE 17 mEq/l (22-31); CHLORIDE 105 mEq/L (97-110); GLUCOSE 70 mg/dL (70-100); MAGNESIUM 2.1 mg/dL (1.6-2.3); SODIUM 134 mEq/L (134-144)
[2016-06-07] MEDS: DEXMEDETOMIDINE HCL 400 MCG in NS 100 ML IV SCH (09:49)
[2016-06-07 09:50] LABS: CALCIUM 5.7 mg/dL (8.5-10.4)
[2016-06-07 09:51] LABS: CREATININE 1.7 mg/dL (0.7-1.3); GLOMERULAR FILTRATION RATE 41
[2016-06-07 10:02] VITALS: RESP 24
[2016-06-07 10:12] LABS: LACTATE DEHYDROGENASE 6520 IU/L (313-618)
[2016-06-07] MEDS ORDERED: SODIUM BICARBONATE 50 MEQ/50 ML SYR IVP ONE (10:57)
[2016-06-07] MEDS ORDERED: NA BICARBONATE 50 MEQ/50 ML VIAL IV ONE (11:30)
[2016-06-07] MEDS ORDERED: SODIUM CHLORIDE IRR SCH (11:30)
--- NOTE | 2016-06-07 11:37 | SOAPPROG ---
SOAP Progress Note Assessment/Plan: Assessment:Plan: ARF-oligoanuric -on CRRT -hyperkalemic -will change replacement fluid to NS -bicarb give actutely -will consider giving calcium prn if iCa < 0.9 or if he becomes less responsive to his current pressors -ICU note reviewed -prognosis poor, may end up with withdrawal of care -supportive care until that decision is made 06/07/16 11:34 Subjective: intubated on vent and pressors, CRRT Objective: Vital Signs Temp Pulse Resp BP Pulse Ox 36.1 C 97 24 H 96/79 L 34 L 06/07/16 11:00 06/07/16 11:00 06/07/16 11:00 06/07/16 11:00 06/07/16 08:19 Microbiology 06/06/16 09:00 Mycobacterial Smear (NATACHA) - Final Bronchial [place] - Other 06/06/16 09:00 Gram Stain - Final Lung Left Lower Lobe - Bronch [place] Laboratory Results 06/07/16 03:58 06/07/16 09:05 06/06/16 06/07/16 06/08/16 05:59 05:59 05:59 Intake Total 8587 52720 Output Total 1150 4241 Balance 7437 6465 PT 24.3 SEC (12.0-15.0) H 06/06/16 17:30 INR 2.16 (0.83-1.16) H 06/06/16 17:30 Physical Exam - Physical Exam General Appearance: unresponsive EENT: ET tube Neck: normal inspection Respiratory: other (coarse breath sounds) Cardiac/Chest: regular rate, rhythm Abdomen: No normal bowel sounds Extremities: No swelling ICD10 Worksheet Patient Problems: Problems Problem Status Diagnosed Hypothermia Acute Respiratory failure Acute Rhabdomyolysis Acute
[2016-06-07] MEDS: VASOPRESSIN/DEXTROSE 250 ML IV SCH (11:58)
[2016-06-07 12:12] VITALS: BP 114/84; PULSE 100; TEMP 96.8
--- NOTE | 2016-06-07 12:42 | PDINTPN ---
Clinical Rn Progress Note Assessment/Plan: Assessment/Plan: * Found down, likely s/p arrest * Anoxic brain injury-no inprovement * Acute Resp Failure-stable on vent -not extubatable * Shock-nearly maxed out on pressors * Metabolic acidosis * Acute renal failure-on CRRT * Thrombocytopenia-count at 20 -transfuse * Rhabdo-improved * Hypothermia-resolved * CMP * Possible Sz * DNR Long discussion with patients stepson. It is his wish that all support be withdrawn and patient be made comfortable. We will abide by his wishes Objective: Vital Signs Temp Pulse Resp BP Pulse Ox 36.0 C 100 24 H 114/84 H 34 L 06/07/16 12:00 06/07/16 12:00 06/07/16 12:00 06/07/16 12:00 06/07/16 08:19 Microbiology 06/06/16 09:00 Gram Stain - Final Lung Left Lower Lobe - Bronch [place] 06/06/16 09:00 Mycobacterial Smear (NATACHA) - Final Bronchial [place] - Other Laboratory Results 06/07/16 03:58 06/07/16 09:05 06/06/16 06/07/16 06/08/16 05:59 05:59 05:59 Intake Total 8587 52100 Output Total 1150 4241 Balance 7437 6465 PT 24.3 SEC (12.0-15.0) H 06/06/16 17:30 INR 2.16 (0.83-1.16) H 06/06/16 17:30 ICD10 Worksheet Patient Problems: Problems Problem Status Diagnosed Hypothermia Acute Respiratory failure Acute Rhabdomyolysis Acute
--- NOTE | 2016-06-07 12:48 | HOSPPROG ---
Hospitalist Progress Note Assessment/Plan: DIAGNOSIS: # SEVERE SHOCK AND MULTIORGAN FAILURE # PROFOUND HYPOTHERMIA # ACUTE RESP FAILURE # ACUTE RENAL FAILURE # UNRESPONSIVE # RHABDOMYOLYSIS # COCAINE ABUSE PLANS: -at this point the patient's care is with ongoing acute aggressive supportive care and antibiotics. The patient's family is here and it sounds like they will likely want to discontinue care this afternoon. I expect that the patient will survive for a very short period of time with removal of supportive care. I have reviewed the condition and care plan with Dr Stanford Also seen on multidisc rounds SUBJECTIVE: no symptom eval as pt comatose Currently the patient remains on 3 pressors, mechanical ventilation, rewarming machine, and CRRT. His blood pressures remain tenuous OBJECTIVE Vitals reviewed: BP and pulse holding steady on 3 high-dose pressors; resps per vent Card Monitor: NSR Exam: comatose tubes include central venous line, CRRT line, thermogard, and ET tube/mech vent ; all lines in good position and well secured Still with severe chemosis Hands and feet still severely cyanotic with finger tips probably with early necrosis skin cool resps prevent lungs clear BSs heart regular abd soft nondistended, bowel sounds present Objective: Vital Signs Temp Pulse Resp BP Pulse Ox 36.0 C 100 24 H 114/84 H 34 L 06/07/16 12:00 06/07/16 12:00 06/07/16 12:00 06/07/16 12:00 06/07/16 08:19 Microbiology 06/06/16 09:00 Gram Stain - Final Lung Left Lower Lobe - Bronch [place] 06/06/16 09:00 Mycobacterial Smear (NATACHA) - Final Bronchial [place] - Other Laboratory Results 06/07/16 03:58 06/07/16 09:05 06/06/16 06/07/16 06/08/16 06:59 06:59 06:59 Intake Total 8587 61552 Output Total 1150 4241 Balance 7437 6465 PT 24.3 SEC (12.0-15.0) H 06/06/16 17:30 INR 2.16 (0.83-1.16) H 06/06/16 17:30 ICD10 Worksheet Patient Problems: Problems Problem Status Diagnosed Hypothermia Acute Respiratory failure Acute Rhabdomyolysis Acute
[2016-06-07] MEDS ORDERED: PIPERACILLIN SODIUM/TAZOBACTAM 3.375 GM in D5W 50 ML IV SCH (13:00)
[2016-06-07] MEDS ORDERED: LORazepam 2 MG/ML INJ IVP SCH (14:00)
--- NOTE | 2016-06-07 22:52 | PDDCSUM ---
Discharge Summary Discharge Summary: THE PATIENT IN THE HOSPITAL 06/07/16 AT 13:20 CAUSE OF : ANOXIC BRAIN INJURY AND SHOCK DIAGNOSES: -SHOCK WITH MULTIORGAN FAILURE -PROFOUND HYPOTHERMIA -ACUTE RESPIRATORY FAILURE -ACUTE RENAL FAILURE -ANOXIC BRAIN INJURY WITHOUT RECOVERY -RHABDOMYOLYSIS -COCAINE ABUSE CONSULTATIONS: DR SELENE ALY PROCEDURES: ENDOTRACH INTUBATION MECHANICAL VENTILATION WARMING WITH THERMOGARD PRESSOR SUPPORT CENTRAL IV PLACEMENT CRRT PLACEMENT OF DIALYSIS CATHETER CT HEAD HOSPITAL COURSE: This patient had lost contact with his family and wellfare check found him unresponsive with pulse and respirations but severe hypotension and core temperature 26 degr celsius (80 fahrenheit). He had very aggressive resuscitation with fluids, pressors, vent support, aggressive rewarming, but came in with coma and never recovered any brain function. There was posturing on exam. He had very poor tissue perfusion despite maximal support. He did not have improved renal function. He was felt to have an extremely poor prognosis for survival to discharge. His next of kin elected to withdraw supportive care and the patient very briefly thereafter. An autopsy was not requested.
== END 2016-06-07 13:20 | disposition expired | DRG 91 ==
LOC: EDUNIT# → F2N 22:35
PROVIDERS: ADMIT Internal Medicine; ATTEND Internal Medicine
PROC: 5A1935Z Respiratory Ventilation, Less than 24 Consecutive Hours (ICD-10-PCS; principal; 2016-06-05)
PROC: 0BH17EZ Insertion of Endotracheal Airway into Trachea, Via Natural or Artificial Opening (ICD-10-PCS; principal; 2016-06-05)
PROC: 06HN33Z Insertion of Infusion Device into Left Femoral Vein, Percutaneous Approach (ICD-10-PCS; 2016-06-06)
PROC: 06HM33Z Insertion of Infusion Device into Right Femoral Vein, Percutaneous Approach (ICD-10-PCS; 2016-06-06)
PROC: 30233K1 Transfusion of Nonautologous Frozen Plasma into Peripheral Vein, Percutaneous Approach (ICD-10-PCS; 2016-06-06)
PROC: 30233R1 Transfusion of Nonautologous Platelets into Peripheral Vein, Percutaneous Approach (ICD-10-PCS; 2016-06-06)
DX: G93.1 Anoxic brain damage, not elsewhere classified (principal); J96.00 Acute respiratory failure, unspecified whether with hypoxia or hypercapnia; N17.9 Acute kidney failure, unspecified; M62.82 Rhabdomyolysis; E87.5 Hyperkalemia; T68.XXXA Hypothermia, initial encounter; R57.0 Cardiogenic shock; F14.10 Cocaine abuse, uncomplicated; R40.2431 Glasgow coma scale score 3-8, in the field [EMT or ambulance]; I95.89 Other hypotension; Z66 Do not resuscitate
CPT/HCPCS: 80307; 82947-QW; G0480; J0171; J0330; J1265; J1644; J1815; J2543; J3010; J3430; P9017; P9035; P9041